=== PATIENT | male | born 1950 | race Caucasian/White ===

== ENCOUNTER → 2016-12-11 | Outpatient (CLI) | payer OTHER ==
[~2016-12-11] MED LIST: ASCA500 PO; ASPI81TA28 PO; CYCL10TA6 PO; LEDI1TAB PO; MELO15TA4 PO; MULT-506 PO; PANT40TA PO; PRLSR20 PO; TADA10TA PO
--- NOTE | 2016-12-11 16:46 | DIAGNOSTIC IMAGING REPORT ---
RIGHT SHOULDER MRI HISTORY: RT SHOULDER PAIN, LOOKING FOR ROTATOR CUFF TEAR Right TECHNIQUE: Multiplanar multisequence MRI of the right shoulder was performed without contrast. COMPARISON STUDY: None. FINDINGS: AC joint: Mild AC joint arthrosis demonstrated by joint space narrowing and small marginal osteophytes. Incidental note is made of an os acromiale. Rotator cuff: The subscapularis, teres minor, and supraspinatus tendons appear to be intact. Small partial undersurface tear at the distal infraspinatus tendon. No evidence for full-thickness rotator cuff tear. Punctate desiccation at the distal subscapularis tendon. Labrum: There is abnormal signal and configuration throughout the superior and inferior portion of the labrum consistent with a tear/degeneration. Biceps tendon: Mild thickening and increased signal in the proximal biceps tendon consistent with a mild tendinopathy. Bones: No fracture or dislocation. Small focus of cystic change within the lateral humeral head. Cartilage: Greater than 50% cartilage thinning within the humeral head and central aspect of the glenoid. Miscellaneous: No significant joint effusion. IMPRESSION: 1. 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 2. Slightly abnormal signal and configuration within the superior and inferior labrum consistent with degeneration/tear. 3. Small partial undersurface tear at the distal infraspinatus tendon. 4. Mild biceps tendinopathy. 5. Mild distal subscapularis calcific tendinitis. Electronically signed by: Artemio Simmons M.D. 12/11/2016 4:43 PM Dictated Date/Time: 12/11/2016 4:36 PM
== END | disposition home or self-care (01) ==
LOC: C.MRIBC 14:52
PROVIDERS: ATTEND Orthopaedic Surgery
DX: M19.011 Primary osteoarthritis, right shoulder (principal); M75.31 Calcific tendinitis of right shoulder; S46.912A Strain of unspecified muscle, fascia and tendon at shoulder and upper arm level, left arm, initial encounter; X58.XXXA Exposure to other specified factors, initial encounter

== ENCOUNTER → 2017-05-21 | Outpatient (CLI) | payer OTHER ==
[~2017-05-21] MED LIST changes: -LEDI1TAB PO; -PRLSR20 PO; -TADA10TA PO
[2017-05-21 13:07] LABS: LYME DISEASE AB IGG NEG (NEG); LYME DISEASE AB IGM NEG (NEG)
== END | disposition home or self-care (01) ==
LOC: C.LABBFT 08:08
PROVIDERS: ATTEND Physician Assistant Medical
DX: R53.81 Other malaise (principal)

== ENCOUNTER → 2017-05-27 | Outpatient (CLI) | payer OTHER ==
[2017-05-27 12:29] LABS: BASO ABS # 0.06 K/uL (0-0.2); COMPLETE YES; EOS % 6.3 %; HEMATOCRIT 46.8 % (42-52); IG% 0.5 %; LYMPH % 26.8 %; LYMPH ABS # 1.69 K/uL (1.2-3.4); MEAN CORPUSCULAR HEMOGLOBIN 32.2 pg (25-34); MEAN CORPUSCULAR HGB CONC 34.6 g/dl (32-36); MEAN PLATELET VOLUME 11.1 fL (7.4-10.4); MONO % 9.8 %; NEUT % 55.6 %; PLATELET COUNT 205 K/uL (130-400); RED BLOOD COUNT 5.03 M/uL (4.7-6.1)
[2017-05-27 12:45] LABS: HEPATITIS B AB NEG
[2017-05-27 13:08] LABS: ALT/SGPT 139 U/L (12-78); AST/SGOT 61 U/L (15-37); BLOOD UREA NITROGEN 15 mg/dl (7-18); BUN/CREATININE RATIO 15.3 (10-20); CARBON DIOXIDE 27 mmol/L (21-32); CHLORIDE 105 mmol/L (98-107); GLUCOSE 116 mg/dl (70-99); POTASSIUM 4.4 mmol/L (3.5-5.1); SODIUM 141 mmol/L (136-145)
[2017-05-27 13:18] LABS: ALB/GLOB RATIO 1.3 (0.9-2); ALKALINE PHOSPHATASE 53 U/L (45-117); RHEUMATOID FACTOR < 10.0 U/mL (0-15)
--- NOTE | 2017-06-01 11:32 | CODING QUERY MEDICAL NECESSITY ---
SUPPORTING DIAGNOSIS NEEDED A supporting diagnosis is required for the test/procedure performed on this patient in order for us to be reimbursed by the patient's insurance. Please provide a supporting diagnosis for the following test/procedure listed below next to the test name along with your signature. *If there is no additional diagnosis for this patient that would support the following test/procedure please document that below next to the test/procedure. Test(s)/Procedure(s) that require a supporting diagnosis: * VITAMIN B12 DIAGNOSIS: Provider Signature: Date: Thank you Polly [employer] Once completed, please kindly fax back to [phone] For questions please call [phone]
== END | disposition home or self-care (01) ==
LOC: C.LABBFT 07:15
PROVIDERS: ATTEND Physician Assistant Medical
DX: M79.1 Myalgia (principal); B18.2 Chronic viral hepatitis C

== ENCOUNTER 2017-07-29 12:15 | Emergency (ER) | payer OTHER ==
[~2017-07-29] VITALS: Ht 177.8 cm; Wt 80.5 kg
[2017-07-29 12:23] VITALS: TEMP 36.7; Ht 177.8 cm; Wt 80.5 kg
[2017-07-29] MEDS ORDERED: IBUPROFEN 800 MG TAB PO STA (12:33)
--- NOTE | 2017-07-29 13:08 | EMERGENCY ROOM VISIT NOTE ---
History Report prepared by Magdalene: Travon Tomlinson Under the Supervision of: Dr. Aris Church M.D. First contact with patient: 12:25 Chief Complaint: FALL Stated Complaint: FALL/BACK PAIN History of Present Illness The patient is a 67 year old male who presents to the Emergency Room with complaints of back pain status post mechanical fall at [facility] on black ice and landed on his right wrist. He was walking when he slipped and landed on his rear end but denies head strike and loss of consciousness. He is concerned for his left sided artificial hip and reports his back is stiffening up. He endorses back soreness and pain with inspiration and rotational movement but denies tenderness upon palpation or sob. Mild neck soreness. Of note, the patient has a history of bursitis in his right hip and sciatica. Source of History: patient Onset: prior to arrival Position: back Quality: ache Timing: constant Modifying Factors (Worsening): movement (rotation) Modifying Factors (Relieving): rest Associated Symptoms: No LOC Review of Systems See HPI for pertinent positives and negatives. A total of ten systems were reviewed and were otherwise negative. Past Medical & Surgical Medical Problems: (1) GERD (gastroesophageal reflux disease) (2) Presence of artificial hip Surgical Problems: (1) Previous back surgery Family History FHx: aneurysm Hypertension Stroke Social History Smoking Status: Former Smoker Alcohol Use: occasionally Marital Status: single Housing Status: lives alone Occupation Status: employed Current/Historical Medications Scheduled Aspirin (Aspirin Ec), 81 MG PO QAM Ledipasvir-Sofosbuvir (Harvoni 90-400 mg), 1 TAB PO DAILY Multivitamin (Multivitamin), 1 TAB PO QAM Scheduled PRN Cyclobenzaprine Hcl (Flexeril), 5-10 MG PO UD PRN for Muscle Spasms Meloxicam (Meloxicam), 15 MG PO DAILY PRN for Pain Allergies Coded Allergies: Amoxicillin (Verified Allergy, Unknown, SEVERE DIARRHEA, 01/13/17) Clavulanic Acid (Verified Allergy, Unknown, SEVERE DIARRHEA, 01/13/17) Grass (Unverified Allergy, Unknown, "ALLERGY SYMPTOMS", 07/29/17) POLLEN (Verified Allergy, Unknown, RUNNY NOSE, CONGESTION, 07/29/17) Physical Exam Vital Signs Date Time Temp Pulse Resp B/P (MAP) Pulse Ox O2 Delivery O2 Flow Rate FiO2 07/29/17 14:00 70 20 130/85 96 Room Air 07/29/17 12:23 36.7 66 20 127/90 95 Room Air Physical Exam GENERAL: Awake, alert, uncomfortable, in no distress HENT: Normocephalic, atraumatic. Oropharynx unremarkable. EYES: Normal conjunctiva. Sclera non-icteric. NECK: Supple. No nuchal rigidity. FROM. No JVD. Mild paraspinal discomfort. No mildline ttp. No stepoffs RESPIRATORY: Clear to auscultation. CARDIAC: Regular rate, normal rhythm. Extremities warm and well perfused. Pulses equal. ABDOMEN: Soft, non-distended. No tenderness to palpation. No rebound or guarding. No masses. RECTAL: Deferred. MUSCULOSKELETAL: Chest examination reveals mild right lateral chest wall tenderness to palpation. The back is symmetrical on inspection without obvious abnormality. No midline tenderness or step off in CTL spine. Mild tenderness in Left inguinal area. There is no CVA tenderness to palpation. No joint edema. Mild right lateral wrist ttp. No snuff box ttp. LOWER EXTREMITIES: Calves are equal size bilaterally and non-tender. No edema. No discoloration. Full range of motion in both hips. Distal PMS in tact. NEURO: Normal sensorium. No sensory or motor deficits noted. SKIN: No rash or jaundice noted. Medical Decision & Procedures ER Provider Diagnostic Interpretation: Radiology results as stated below per my review and radiologist interpretation: [~ rep ct add3]] AP PELVIS AND LEFT HIP 3 VIEWS CLINICAL HISTORY: left hip pain fall COMPARISON STUDY: 01/17/2016 FINDINGS: There are postsurgical changes of a total left hip arthroplasty. No acute fractures or dislocations are visualized. There is no SI joint diastases. There is no symphysis diastases. IMPRESSION: Postsurgical change. No acute fractures identified. LUMBAR SPINE 3 VIEWS CLINICAL HISTORY: Lower back pain status post trauma COMPARISON STUDY: December 2015 FINDINGS: There is no pathologic bowel dilatation. There are postsurgical changes of a total left hip arthroplasty. There are mild multilevel degenerative changes. No acute fractures or traumatic subluxations are visualized. IMPRESSION: No fractures or subluxations identified. Electronically signed by: Charlie Henry M.D. 07/29/2017 1:44 PM Electronically signed by: Charlie Henry M.D. 07/29/2017 1:43 PM R RIBS UNILATERAL WITH PA CHEST CLINICAL HISTORY: Right rib pain following fall. COMPARISON STUDY: Chest radiograph January 30, 2015. FINDINGS: No pneumothorax is identified. There is a possible trace right pleural fluid. No acute rib fracture is identified. There is an old fracture of the right sixth rib. No airspace opacities are evident. IMPRESSION: 1. No pneumothorax. Possible trace right pleural fluid. 3. No acute right rib fractures identified by radiography. Electronically signed by: Scotty Saab M.D. 07/29/2017 1:51 PM R WRIST MIN 3 VIEWS ROUTINE CLINICAL HISTORY: Right wrist pain status post trauma COMPARISON: None. DISCUSSION: No fractures or dislocations are visualized. IMPRESSION: No fractures identified. Electronically signed by: Charlie Henry M.D. 07/29/2017 1:45 PM Laboratory Results Laboratory results reviewed by me Medications Administered Medications (Trade) Dose Ordered Sig/Reggie Route Start Time Stop Time Status Last Admin Dose Admin Ibuprofen (Motrin Tab) 800 mg NOW STAT PO 07/29/17 12:33 07/29/17 12:37 DC 07/29/17 12:58 800 MG Medical Decision I reviewed the patient's past medical history, medications, and the nursing notes as described above. The patient's presentation and history were concerning for fracture, dislocation , muscular strain, and soft tissue injury. The patient is a 67-year-old gentleman with a past medical history of a left hip replacement presents to emergency department after having a fall when he slipped on black ice falling onto his lower back per history of present illness. Arrival the patient is uncomfortable but in no acute distress. AFVSS. The patient has mild tenderness to the right lateral chest wall and left inguinal area. However, has full range of motion in both hips. Xrays negative for fx. ?right pleural fluid however patient denies sob and sats >95% on RA. Plan for pcp and ortho f/u. Findings and plan for follow-up reviewed with patient. Patient agreeable and d/c'd per discharge instructions. Impression Primary Impression: Fall Additional Impressions: Hip pain, left Injury of muscle of lower back Scribe Attestation The scribe's documentation has been prepared under my direction and personally reviewed by me in its entirety. I confirm that the note above accurately reflects all work, treatment, procedures, and medical decision making performed by me. Departure Information Dispostion Home / Self-Care Referrals Loki Lim M.D. (PCP) Patient Instructions ED Contusion Hip, ED Mechanical Fall, My [facility] Additional Instructions Please follow up with your orthopedis in the next week for re-evaluation. Your exam and xrays did not show signs of an emergent condition at this time. Continue your Meloxicam for pain as needed. Return to the emergency department for worsening symptoms as described in the accompanying instructions. Problem Qualifiers
--- NOTE | 2017-07-29 13:44 | DIAGNOSTIC IMAGING REPORT ---
AP PELVIS AND LEFT HIP 3 VIEWS CLINICAL HISTORY: left hip pain fall COMPARISON STUDY: 01/17/2016 FINDINGS: There are postsurgical changes of a total left hip arthroplasty. No acute fractures or dislocations are visualized. There is no SI joint diastases. There is no symphysis diastases. IMPRESSION: Postsurgical change. No acute fractures identified. Electronically signed by: Charlie Henry M.D. 07/29/2017 1:43 PM Dictated Date/Time: 07/29/2017 1:42 PM
--- NOTE | 2017-07-29 13:46 | DIAGNOSTIC IMAGING REPORT ---
LUMBAR SPINE 3 VIEWS CLINICAL HISTORY: Lower back pain status post trauma COMPARISON STUDY: December 2015 FINDINGS: There is no pathologic bowel dilatation. There are postsurgical changes of a total left hip arthroplasty. There are mild multilevel degenerative changes. No acute fractures or traumatic subluxations are visualized. IMPRESSION: No fractures or subluxations identified. Electronically signed by: Charlie Henry M.D. 07/29/2017 1:44 PM Dictated Date/Time: 07/29/2017 1:44 PM
--- NOTE | 2017-07-29 13:46 | DIAGNOSTIC IMAGING REPORT ---
R WRIST MIN 3 VIEWS ROUTINE CLINICAL HISTORY: Right wrist pain status post trauma COMPARISON: None. DISCUSSION: No fractures or dislocations are visualized. IMPRESSION: No fractures identified. Electronically signed by: Charlie Henry M.D. 07/29/2017 1:45 PM Dictated Date/Time: 07/29/2017 1:45 PM
--- NOTE | 2017-07-29 13:52 | DIAGNOSTIC IMAGING REPORT ---
R RIBS UNILATERAL WITH PA CHEST CLINICAL HISTORY: Right rib pain following fall. COMPARISON STUDY: Chest radiograph January 30, 2015. FINDINGS: No pneumothorax is identified. There is a possible trace right pleural fluid. No acute rib fracture is identified. There is an old fracture of the right sixth rib. No airspace opacities are evident. IMPRESSION: 1. No pneumothorax. Possible trace right pleural fluid. 3. No acute right rib fractures identified by radiography. Electronically signed by: Scotty Saab M.D. 07/29/2017 1:51 PM Dictated Date/Time: 07/29/2017 1:45 PM
[2017-07-29 14:00] VITALS: BP 130/85; PULSE 70; O2SAT 96
[2017-07-29] MEDS ORDERED: LEDI1TAB PO (14:29)
== END 2017-07-29 15:00 | disposition home or self-care (01) ==
LOC: EDBD 12:15 → C.EDC 12:19
DX: S39.92XA Unspecified injury of lower back, initial encounter (principal); W01.0XXA Fall on same level from slipping, tripping and stumbling without subsequent striking against object, initial encounter; M25.552 Pain in left hip; K21.9 Gastro-esophageal reflux disease without esophagitis; Z96.649 Presence of unspecified artificial hip joint; Z98.890 Other specified postprocedural states; Z87.891 Personal history of nicotine dependence; Z79.82 Long term (current) use of aspirin; Z79.899 Other long term (current) drug therapy; Z88.1 Allergy status to other antibiotic agents; Z88.8 Allergy status to other drugs, medicaments and biological substances; Z82.49 Family history of ischemic heart disease and other diseases of the circulatory system; Z82.3 Family history of stroke

== ENCOUNTER → 2017-08-21 | Outpatient (CLI) | payer OTHER ==
[~2017-08-21] MED LIST changes: -ASCA500 PO; +BIOFTAB24 PO; +LEDI1TAB PO; +MELO-83 PO; -MELO15TA4 PO; -PANT40TA PO; +PRT/20 PO; +TRAM-10 PO
[2017-08-21 12:12] LABS: BASO % 0.6 %; BASO ABS # 0.05 K/uL (0-0.2); EOS % 4.6 %; EOS ABS # 0.38 K/uL (0-0.5); HEMATOCRIT 46.8 % (42-52); HEMOGLOBIN 16.8 g/dL (14.0-18.0); IG# 0.04 K/uL (0.00-0.02); LYMPH % 29.1 %; LYMPH ABS # 2.39 K/uL (1.2-3.4); MEAN CELL VOLUME 93.8 fL (80-100); MEAN CORPUSCULAR HEMOGLOBIN 33.7 pg (25-34); MEAN CORPUSCULAR HGB CONC 35.9 g/dl (32-36); MEAN PLATELET VOLUME 10.7 fL (7.4-10.4); MONO % 9.1 %; MONO ABS # 0.75 K/uL (0.11-0.59); NEUT % 56.1 %; PLATELET COUNT 196 K/uL (130-400); RED CELL DISTRIBUTION WIDTH CV 11.9 % (11.5-14.5); RED CELL DISTRIBUTION WIDTH SD 39.6 fL (36.4-46.3); WHITE BLOOD COUNT 8.21 K/uL (4.8-10.8)
[2017-08-21 12:35] LABS: ALBUMIN 3.8 gm/dl (3.4-5.0); ALT/SGPT 55 U/L (12-78); AST/SGOT 28 U/L (15-37); BLOOD UREA NITROGEN 17 mg/dl (7-18); CALCIUM 9.2 mg/dl (8.5-10.1); CARBON DIOXIDE 29 mmol/L (21-32); CHOLESTEROL 191 mg/dl (0-200); GLUCOSE 130 mg/dl (70-99); POTASSIUM 4.8 mmol/L (3.5-5.1); SODIUM 137 mmol/L (136-145)
[2017-08-21 12:40] LABS: ALKALINE PHOSPHATASE 54 U/L (45-117); LDL CHOLESTEROL CALCULATED 88 mg/dl; TOTAL PROTEIN 7.2 gm/dl (6.4-8.2)
[2017-08-27 05:43] LABS: HEPATITIS C VIRAL RNA BY PCR <15 NOT DETECTED IU/ML (<15); HEPATITIS C VIRAL RNA(LOG) PCR <1.18 NOT DETECTED LOG IU/ML (<1.18)
== END | disposition home or self-care (01) ==
LOC: C.LAB1850 10:40
PROVIDERS: ATTEND Internal Medicine Infectious Disease
DX: Z12.5 Encounter for screening for malignant neoplasm of prostate (principal); E78.5 Hyperlipidemia, unspecified; B18.2 Chronic viral hepatitis C

== ENCOUNTER → 2017-09-23 | Outpatient (CLI) | payer OTHER ==
[~2017-09-23] MED LIST changes: -BIOFTAB24 PO; -MELO-83 PO; +MELO15TA4 PO; -PRT/20 PO; -TRAM-10 PO
[2017-09-23 13:20] LABS: BASO ABS # 0.08 K/uL (0-0.2); EOS ABS # 0.33 K/uL (0-0.5); HEMATOCRIT 44.8 % (42-52); HEMOGLOBIN 15.9 g/dL (14.0-18.0); IG# 0.03 K/uL (0.00-0.02); LYMPH % 25.9 %; LYMPH ABS # 2.13 K/uL (1.2-3.4); MEAN CELL VOLUME 91.8 fL (80-100); MEAN CORPUSCULAR HEMOGLOBIN 32.6 pg (25-34); MEAN CORPUSCULAR HGB CONC 35.5 g/dl (32-36); MEAN PLATELET VOLUME 10.6 fL (7.4-10.4); MONO % 8.6 %; MONO ABS # 0.71 K/uL (0.11-0.59); NEUT % 60.1 %; NEUT ABS # 4.94 K/uL (1.4-6.5); PLATELET COUNT 191 K/uL (130-400); RED CELL DISTRIBUTION WIDTH CV 11.7 % (11.5-14.5); RED CELL DISTRIBUTION WIDTH SD 39.9 fL (36.4-46.3); WHITE BLOOD COUNT 8.22 K/uL (4.8-10.8)
[2017-09-23 13:48] LABS: ALBUMIN 3.7 gm/dl (3.4-5.0); BLOOD UREA NITROGEN 16 mg/dl (7-18); CALCIUM 9.3 mg/dl (8.5-10.1); CARBON DIOXIDE 29 mmol/L (21-32); CREATININE 0.86 mg/dl (0.60-1.40); GLUCOSE 103 mg/dl (70-99); POTASSIUM 4.2 mmol/L (3.5-5.1); SODIUM 136 mmol/L (136-145)
[2017-09-23 14:06] LABS: ALKALINE PHOSPHATASE 55 U/L (45-117); ALT/SGPT 37 U/L (12-78); AST/SGOT 18 U/L (15-37); TOTAL PROTEIN 7.1 gm/dl (6.4-8.2)
[2017-09-27 13:17] LABS: HEPATITIS C VIRAL RNA BY PCR <15 NOT DETECTED IU/ML (<15); HEPATITIS C VIRAL RNA(LOG) PCR <1.18 NOT DETECTED LOG IU/ML (<1.18)
== END | disposition home or self-care (01) ==
LOC: C.LAB1850 12:22
PROVIDERS: ATTEND Internal Medicine Infectious Disease
DX: B18.2 Chronic viral hepatitis C (principal)

== ENCOUNTER → 2017-10-19 | Outpatient (CLI) | payer OTHER ==
[~2017-10-19] MED LIST changes: +MELO-83 PO; -MELO15TA4 PO
--- NOTE | 2017-10-19 08:54 | DIAGNOSTIC IMAGING REPORT ---
ULTRASOUND EXAM AAA SCREEN CLINICAL HISTORY: 67 years-old Male with FAMILY HX RUPTURED ANEURYSM OF ABD AORTA. Screening exam for abdominal aortic aneurysm COMPARISON: Ultrasound of the abdomen 06/22/2014 TECHNIQUE: Multiple real time sonographic images of the abdominal aorta were obtained assessing -scale appearance as well as color. Doppler and spectral waveform analysis. FINDINGS: MEASUREMENTS: Proximal Aorta: 2.3 x 2.4 x 2.6 cm Mid Aorta: 2.0 x 1.9 x 2.0 cm Distal Aorta: 1.7 x 1.6 x 1.4 cm Right Common Iliac Artery: 0.9 cm Left Common Iliac Artery: 1.1 cm Pulsatile color Doppler flow and a normal spectral waveform are seen within the proximal aorta. IMPRESSION: No abdominal aortic aneurysm identified. The above report was generated using voice recognition software. It may contain grammatical, syntax or spelling errors. Electronically signed by: Scott Guzmán M.D. 10/19/2017 8:53 AM Dictated Date/Time: 10/19/2017 8:49 AM
== END | disposition home or self-care (01) ==
LOC: C.ULTR 08:20
PROVIDERS: ATTEND Physician Assistant Medical
DX: Z82.49 Family history of ischemic heart disease and other diseases of the circulatory system (principal)

== ENCOUNTER → 2017-12-14 | Outpatient (CLI) | payer OTHER ==
[2017-12-14 12:26] LABS: BASO ABS # 0.07 K/uL (0-0.2); EOS % 4.6 %; EOS ABS # 0.33 K/uL (0-0.5); HEMATOCRIT 43.9 % (42-52); HEMOGLOBIN 15.4 g/dL (14.0-18.0); IG# 0.02 K/uL (0.00-0.02); LYMPH % 29.1 %; LYMPH ABS # 2.11 K/uL (1.2-3.4); MEAN CELL VOLUME 94.2 fL (80-100); MEAN CORPUSCULAR HGB CONC 35.1 g/dl (32-36); MEAN PLATELET VOLUME 10.9 fL (7.4-10.4); MONO % 8.6 %; MONO ABS # 0.62 K/uL (0.11-0.59); NEUT % 56.4 %; NEUT ABS # 4.09 K/uL (1.4-6.5); PLATELET COUNT 205 K/uL (130-400); RED CELL DISTRIBUTION WIDTH CV 12.3 % (11.5-14.5); RED CELL DISTRIBUTION WIDTH SD 41.6 fL (36.4-46.3); WHITE BLOOD COUNT 7.24 K/uL (4.8-10.8)
[2017-12-14 12:47] LABS: ALBUMIN 3.8 gm/dl (3.4-5.0); ALT/SGPT 32 U/L (12-78); AST/SGOT 22 U/L (15-37); BLOOD UREA NITROGEN 17 mg/dl (7-18); CALCIUM 9.3 mg/dl (8.5-10.1); CARBON DIOXIDE 30 mmol/L (21-32); CREATININE 0.97 mg/dl (0.60-1.40); GLUCOSE 119 mg/dl (70-99); POTASSIUM 5.2 mmol/L (3.5-5.1); SODIUM 139 mmol/L (136-145)
[2017-12-14 12:50] LABS: ALKALINE PHOSPHATASE 59 U/L (45-117); TOTAL PROTEIN 7.1 gm/dl (6.4-8.2)
[2017-12-15 14:44] LABS: HEPATITIS C VIRAL RNA BY PCR <15 DETECTED IU/ML (<15); HEPATITIS C VIRAL RNA(LOG) PCR <1.18 DETECTED LOG IU/ML (<1.18)
== END | disposition home or self-care (01) ==
LOC: C.LAB1850 10:05
PROVIDERS: ATTEND Internal Medicine Infectious Disease
DX: B18.2 Chronic viral hepatitis C (principal)

== ENCOUNTER 2019-01-03 05:50 | Observation (INO) ==
--- NOTE | 2018-12-07 15:02 | PAT Medication Instructions ---
Medication Instructions Date of Service December 07, 2018 Home Medications aspirin [Aspir-81] 81 mg PO DAILY meloxicam 15 mg PO DAILY PRN multivitamin 1 dose PO DAILY pantoprazole 20 mg PO QAM fluticasone propionate [Flonase 1 - 2 spray INTRANASAL UD PRN ketorolac 10 mg PO Q6H PRN methylprednisolone 4 mg PO Q8H tramadol 50 mg PO Q6H PRN Continue as directed methylprednisolone 4 mg PO Q8H ASK your surgeon for instructions meloxicam 15 mg PO DAILY PRN ketorolac 10 mg PO Q6H PRN ASK your prescriber and surgeon aspirin [Aspir-81] 81 mg PO DAILY DO NOT take the morning of surgery multivitamin 1 dose PO DAILY Take morning of surgery With a small sip of water, OTHERWISE NOTHING TO EAT OR DRINK AFTER MIDNIGHT: pantoprazole 20 mg PO QAM fluticasone propionate [Flonase 1 - 2 spray INTRANASAL UD PRN (if needed) tramadol 50 mg PO Q6H PRN (okay to take up to 4 hours prior to surgery if needed) Take evening before surgery fluticasone propionate [Flonase 1 - 2 spray INTRANASAL UD PRN (if needed) tramadol 50 mg PO Q6H PRN (if needed) Other Notes If you have any questions please call us at [phone] or [phone] or [phone] or [phone]
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
--- NOTE | 2018-12-08 11:42 | XRay Report ---
XR chest Pre-admission PA/Lat HISTORY: Preop. COMPARISON: Chest 07/29/2017. FINDINGS: The lungs are clear. Cardiac silhouette is normal in size. No pleural effusions. No pneumot horax. IMPRESSION: No acute process. Electronically signed by: Artemio Simmons M.D. 12/08/2018 11:41 AM
[2018-12-08 12:01] LABS: Basophils # (auto) 0.06 K/uL (0-0.2); Basophils % (auto) 0.4 %; Eosinophils # (auto) 0.25 K/uL (0-0.5); Eosinophils % (auto) 1.8 %; Hemoglobin 15.9 g/dL (14.0-18.0); Immature Granulocytes # (auto) 0.17 K/uL (0.00-0.02); Immature Granulocytes % (auto) 1.2 %; Lymphocytes # (auto) 4.44 K/uL (1.2-3.4); Lymphocytes % (auto) 31.7 %; Mean Corpuscular Hgb Conc 34.6 g/dL (32-36); Mean Corpuscular Volume 93.3 fL (80-100); Mean Platelet Volume 10.4 fL (7.4-10.4); Monocytes % (auto) 9.3 %; Neutrophils % (auto) 55.6 %; Platelet Count 229 K/uL (130-400); RDW Standard Deviation 40.3 fL (36.4-46.3); Red Blood Count 4.93 M/uL (4.7-6.1); White Blood Count 14.02 K/uL (4.8-10.8)
[2018-12-08 12:06] LABS: Calcium 9.7 mg/dl (8.5-10.1); Creatinine Clr Calc Pharmacy 76.8 ml/min; Est GFR (African American) 94.9; Est GFR (Non-African American) 81.9; Potassium 5.1 mmol/L (3.5-5.1)
[2018-12-08 12:25] LABS: Partial Thromboplastin Ratio 0.9; Partial Thromboplastin Time 23.1 Seconds (21.0-31.0); Prothrombin Time 10.7 Seconds (9.0-12.0)
--- NOTE | 2018-12-24 11:58 | History and Physical Report ---
DATE OF ADMISSION: 01/03/2019 CHIEF COMPLAINT: Back, buttock, lower extremity difficulty. He is scheduled for a discectomy, L5-S1. HISTORY OF PRESENT ILLNESS: He has failed conservative care. He has had ongoing difficulties, paresthesias, numbness and pain. He has finally come to surgical decision making. PAST MEDICAL HISTORY: Positive for depression, stomach problems, hepatitis. PAST SURGICAL HISTORY: Disc surgery in L5, left hip surgery in 2011. ALLERGIES: No allergies. FAMILY HISTORY: Heart disease. SOCIAL HISTORY: He is single. Moderate alcohol, no tobacco. Active lifestyle. REVIEW OF SYSTEMS: Twelve systems reviewed. No fevers, sweats, chills. Ear, nose, and throat: Negative. Cardiac: He has some heart beat changes. Positive cough. Positive depression, sinus issues. Denies nausea, vomiting, bowel and bladder incontinence. No immune deficiency. MEDICATIONS: Meloxicam, cyclobenzaprine, baby aspirin. OBJECTIVE: GENERAL: He is 5 feet 10 inches. He is 180. He is in no terrible distress. VITAL SIGNS: Blood pressure 130/80, pulse 80, respirations 16. LUNGS: Clear to auscultation. No rales, rhonchi, wheezing. ABDOMEN: Soft, nontender. CARDIAC: Normal S1, S2. MUSCULOSKELETAL: He walks with a limp. He has weakness of push off strength. He has decreased reflexes. He has straight leg raising on the left, negative on the right. ASSESSMENT: Disc herniation, lumbar spine. PLAN: Includes a lumbar spine discectomy, L5-S1.
[2019-01-03] MEDS ORDERED: CEFAZOLIN 2000MG 2,000 MG/15 ML SYR IV SCH (06:00)
[2019-01-03] MEDS ORDERED: LR 15ML/HR IV SCH (06:00)
[2019-01-03] MEDS ORDERED: SODIUM CHLORIDE 0.9% 1,000 ML IV SCH (06:00)
[2019-01-03] MEDS ORDERED: ONDANSETRON INJ 2 MG/ML 2 ML VIAL ONE (06:50)
[2019-01-03] MEDS ORDERED: DEXAMETHASONE SOD INJ 4 MG/ML VIAL ONE (06:50)
[2019-01-03] MEDS ORDERED: ROCURONIUM BROMIDE 10 MG/ML 5 ML VIAL ONE (06:50)
[2019-01-03] MEDS ORDERED: MIDAZOLAM HCL 1 MG/ML 2ML VIAL ONE (06:50)
[2019-01-03] MEDS ORDERED: LIDOCAINE HCL 2% 2 ML VIAL/AMP(20MG/ML) INFIL ONE (06:50)
[2019-01-03] MEDS ORDERED: GLYCOPYRROLATE 0.2 MG/ML VIAL ONE (06:50)
[2019-01-03] MEDS ORDERED: PROPOFOL IV EMULSION 10 MG/ML 20 ML VIAL IV ONE (06:50)
[2019-01-03] MEDS ORDERED: NEOSTIGMINE METHYLSULFATE 5 MG/5 ML SYR ONE (06:50)
[2019-01-03] MEDS ORDERED: fentaNYL citrate 100 MCG/2 ML VIAL ONE ×2 (06:50)
[2019-01-03] MEDS ORDERED: HYDROmorphone INJ 1 MG/ML SYRINGE IV PRN ×3 (06:54→10:14)
[2019-01-03] MEDS ORDERED: PROMETHAZINE HCL 12.5 MG in SODIUM CHLORIDE 0.9% 50 ML IV PRN (06:54)
[2019-01-03] MEDS ORDERED: ePHEDrine sulfate 50 MG/ML AMP IV PRN (06:54)
[2019-01-03] MEDS ORDERED: ATROPINE SULFATE 0.1 MG/ML 10ML SYR IV PRN (06:54)
[2019-01-03] MEDS ORDERED: PHENYLEPHRINE 100MCG/ML 5ML SYR IV PRN (06:54)
[2019-01-03] MEDS ORDERED: ONDANSETRON INJ 2 MG/ML 2 ML VIAL IV PRN ×2 (06:54→10:14)
[2019-01-03] MEDS ORDERED: THROMBIN FOR SOLN 20000 UNIT KIT ONE (07:06)
[2019-01-03] MEDS ORDERED: VANCOMYCIN HCL 1000MG/20ML VIAL ONE (07:06)
[2019-01-03] MEDS ORDERED: BUPIVACAINE/EPINEPHRINE 0.5% MPF 1:200,000 30 ML VIAL ONE (07:06)
[2019-01-03] MEDS ORDERED: GELATIN SPONGE SZ 100 ONE (07:06)
[2019-01-03] MEDS ORDERED: BACITRACIN INJ 50,000 UNIT VIAL ONE (07:06)
--- NOTE | 2019-01-03 07:21 | History & Physical Bridge Note ---
Date of Service January 03, 2019 History & Physical Bridge Note I have examined the patient, reviewed the History & Physical and in the interval since the performance of the History & Physical I have noted the following changes of clinical significance: no changes noted
[2019-01-03] MEDS ORDERED: KETOROLAC 30 MG/ML VIAL ONE (08:19)
--- NOTE | 2019-01-03 08:44 | Fluoroscopy Report ---
FL spine 1V any level HISTORY: Discectomy. FLUOROSCOPY TIME: 2 seconds. FINDINGS: Intraoperative fluoroscopy was provided for the lumbar spine. 1 fluoroscopic spot images we re obtained. IMPRESSION: Fluoroscopy provided for a L5-S1 discectomy. The above report was generated using voice recognition software. It may contain grammatical, syntax or spelling errors. Electronically signed by: Morgan Templeton M.D. 01/03/2019 8:42 AM
--- NOTE | 2019-01-03 08:46 | Post Operative Brief Note ---
Immediate Post Op Note v1 Date of Surgery January 03, 2019 Pre & Post Diagnosis Operation Date: 01/03/19 07:30 Pre-Op Diagnosis: Disc Herniation Post-Op Diagnosis: Disc Herniation Procedure Operation Date: 01/03/19 07:30 Actual Procedures p L5-S1 Discectomy - Larry Maldonado DO Surgeon Larry Maldonado DO Cork Molder mario Estimated Blood Loss 25 Findings Consistent with Post-Op Diagnosis Drains Hemovac Drain Complications none Disposition Accompanied Patient To Recovery: Yes Overlapping Procedure I was immediately available: during the entire case.
[2019-01-03] MEDS: fentaNYL citrate 100 MCG/2 ML VIAL IV PRN ×4 (08:54→09:09)
--- NOTE | 2019-01-03 09:20 | Anesthesiology Progress Note ---
Date of Service January 03, 2019 Anesthesia Post Procedure Vital Signs Vital Signs: Temp Pulse Pulse Resp BP Pulse Ox 01/03/19 09:10 76 17 165/90 H 100 01/03/19 09:00 80 13 162/88 H 100 01/03/19 08:50 82 19 157/82 H 100 01/03/19 08:41 36.1 C L 87 16 144/83 H 97 01/03/19 06:26 36.8 C 69 20 157/94 H 96 Pain Intensity Left Leg: Pain Intensity: 3 Back: Pain Intensity: 5 Transfer of Care Handoff Completed per policy Notes Mental Status: alert / awake / arousable Patient Amnestic to Procedure: Yes Nausea / Vomiting: adequately controlled Pain: adequately controlled Airway Patency, RR, SpO2: stable & adequate BP & HR: stable & adequate Hydration State: stable & adequate Anesthetic Complications: no major complications apparent
[2019-01-03] MEDS ORDERED: OXYCODONE HCL IR 5 MG TAB (IMMEDIATE RELEASE) PO PRN (10:14)
[2019-01-03] MEDS ORDERED: ACETAMINOPHEN 1,000 MG/100 ML VIAL IV PRN (10:14)
--- NOTE | 2019-01-03 10:26 | Operative Report ---
DATE OF OPERATION: 01/03/2019 PREOPERATIVE DIAGNOSIS: Disc herniation, lumbar spine. POSTOPERATIVE DIAGNOSIS: Disc herniation, lumbar spine. PROCEDURES: Lumbar spine laminotomy, foraminotomy and discectomy, L5-S1 lumbar spine on the left hand side, symptomatic side. SURGEON: Larry Maldonado DO WELLNESS ASSISTANT: Sonu Santiago PA-C COMPLICATIONS: Zero. BLOOD LOSS: Less than 30 mL. Sponge and needle count correct at the close. DESCRIPTION OF PROCEDURE: The patient was identified in the preop area marked. We brought him back to the operating room. A formal timeout was obtained. First, he was placed prone, prepped and draped sterile. We call a formal timeout. We made a skin incision, fascial incision. We came down to the L5-S1 interspace. I marked the interspace with a Eleazar clamp. We did a formal discectomy, mini laminotomy superior. We did a foraminotomy, and partial laminotomy below on the left hand side. We completed the foraminotomy. I retracted the nerve root over. He had prior surgery. There was scar tissue. We were able to piecemeal out ample amount of disc material. I was able to get into the disc interval. There were no apparent complications. I was pleased with the freedom of the associated nerve root, it was well decompressed. We irrigated and closed in layers. Sterile dressings applied over Hemovac drain and over vancomycin powder. Sterile dressings applied. The patient returned to PACU stable. No apparent complications. I attest to the content of the Intraoperative Record and any orders documented therein. Any exception s are noted below.
[2019-01-03] MEDS: ASPIRIN 81 MG ECTAB PO SCH (12:03)
[2019-01-03] MEDS: CLINDAMYCIN 600 MG in DEXTROSE 5% 50 ML IV SCH ×2 (12:03→18:18)
[2019-01-03] MEDS: PANTOprazole 40 MG TAB PO SCH (12:03)
[2019-01-03] MEDS: DOCUSATE SODIUM 100 MG CAP PO SCH ×2 (12:03→21:30)
[2019-01-03] MEDS: MULTIVITAMIN TAB PO SCH (12:03)
[2019-01-03] MEDS: MAGNESIUM HYDROXIDE SUSP 30 ML UDC PO PRN (12:05)
[2019-01-03] MEDS ORDERED: SOD PHOSPHATE/SOD BIPHOSPHATE ENEMA 132 ML BTL PR STA (17:25)
[2019-01-03] MEDS ORDERED: BISACODYL 10 MG SUPP PR STA (17:27)
[2019-01-03] MEDS ORDERED: BISACODYL 5 MG TABEC PO STA (17:29)
[2019-01-03] MEDS: OXYCODONE HCL IR 5 MG TAB (IMMEDIATE RELEASE) PO PRN (18:18)
[2019-01-03] MEDS ORDERED: SOD PHOSPHATE/SOD BIPHOSPHATE ENEMA 132 ML BTL PR ONE (19:43)
[2019-01-04] MEDS: CLINDAMYCIN 600 MG in DEXTROSE 5% 50 ML IV SCH (01:59)
[2019-01-04] MEDS: OXYCODONE HCL IR 5 MG TAB (IMMEDIATE RELEASE) PO PRN (07:26)
[2019-01-04] MEDS: ASPIRIN 81 MG ECTAB PO SCH (07:27)
[2019-01-04] MEDS: PANTOprazole 40 MG TAB PO SCH (07:27)
[2019-01-04] MEDS: MULTIVITAMIN TAB PO SCH (07:27)
[2019-01-04] MEDS: DOCUSATE SODIUM 100 MG CAP PO SCH ×2 (07:27→20:55)
--- NOTE | 2019-01-04 07:45 | Anesthesiology Progress Note ---
Date of Service January 04, 2019 Anesthesia Post Procedure Vital Signs Vital Signs: Temp Pulse Pulse Resp BP BP Pulse Ox 01/04/19 06:59 37.3 C 80 18 149/93 H 95 01/04/19 02:55 36.6 C 81 16 148/87 H 94 01/03/19 23:05 36.6 C 81 18 153/93 H 96 01/03/19 19:28 36.6 C 93 H 17 147/87 H 97 01/03/19 17:02 91 H 148/97 H 97 01/03/19 15:08 36.6 C 80 17 144/92 H 97 01/03/19 12:51 37.0 C 90 16 158/64 H 97 01/03/19 11:41 36.6 C 74 16 169/101 H 95 01/03/19 10:36 36.3 C L 78 16 155/96 H 98 01/03/19 10:08 72 18 161/99 H 97 01/03/19 09:40 36.4 C L 72 14 168/89 H 99 01/03/19 09:30 76 19 167/94 H 98 01/03/19 09:20 36.1 C L 73 18 168/94 H 100 01/03/19 09:10 76 17 165/90 H 100 01/03/19 09:00 80 13 162/88 H 100 01/03/19 08:50 82 19 157/82 H 100 01/03/19 08:41 36.1 C L 87 16 144/83 H 97 Pain Intensity Left Leg: Pain Intensity: 3 Back: Pain Intensity: 3 Notes Mental Status: alert / awake / arousable and participated in evaluation Patient Amnestic to Procedure: Yes Nausea / Vomiting: adequately controlled Pain: adequately controlled Airway Patency, RR, SpO2: stable & adequate BP & HR: stable & adequate Hydration State: stable & adequate Anesthetic Complications: no major complications apparent and Pt Satisfied with anesthetic care
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
--- NOTE | 2019-01-04 08:17 | Discharge Summary ---
SUBJECTIVE: He is alert, oriented this morning, taking p.o. He does have some constipation issues with pain control. We have him on a bowel program. He has also been cleared and seen by urology. OBJECTIVE: Wound clean, dry. Neurologically intact. ASSESSMENT: Status post lumbar spine discectomy procedure. PLAN: We will get him discharged home later on this afternoon. Dressing changed. We will stick with tramadol or Ultram at home, stay away from heavy narcotics, place him on a bowel program, prescription for [id number] Dulcolax tablets. He has a followup appointment in approximately 14 days. Instructions given, precautions provided.
[2019-01-04] MEDS: TAMSULOSIN HCL 0.4 MG CAP PO SCH (11:01)
[2019-01-04] MEDS: MAGNESIUM HYDROXIDE SUSP 30 ML UDC PO PRN (11:05)
[2019-01-04] MEDS ORDERED: SOD PHOSPHATE/SOD BIPHOSPHATE ENEMA 132 ML BTL PR STA (15:11)
[2019-01-04] MEDS: ACETAMINOPHEN 1,000 MG/100 ML VIAL IV SCH (17:06)
[2019-01-04] MEDS: TRAMADOL HCL 50 MG TABLET PO PRN (23:48)
[2019-01-05] MEDS: ACETAMINOPHEN 1,000 MG/100 ML VIAL IV SCH ×2 (01:44→09:53)
[2019-01-05] MEDS ORDERED: BISACODYL 5 MG TABEC PO PRN (06:00)
[2019-01-05] MEDS: DOCUSATE SODIUM 100 MG CAP PO SCH (08:41)
[2019-01-05] MEDS: PANTOprazole 40 MG TAB PO SCH (08:41)
[2019-01-05] MEDS: MULTIVITAMIN TAB PO SCH (08:41)
[2019-01-05] MEDS: TAMSULOSIN HCL 0.4 MG CAP PO SCH (08:41)
[2019-01-05] MEDS: ASPIRIN 81 MG ECTAB PO SCH (08:41)
[2019-01-05] MEDS: TRAMADOL HCL 50 MG TABLET PO PRN (10:29)
== END 2019-01-05 11:05 | disposition home health service (06) ==
LOC: ASU 05:50 → 3E 05:50

== ENCOUNTER 2019-08-22 11:56 | Observation (INO) ==
[2019-08-22] MEDS ORDERED: ONDANSETRON INJ 2 MG/ML 2 ML VIAL IV STA (13:30)
[2019-08-22] MEDS ORDERED: ASPIRIN CHEW 324 MG PO STA (13:30)
[2019-08-22] MEDS ORDERED: fentaNYL citrate 100 MCG/2 ML VIAL IV PRN (13:30)
--- NOTE | 2019-08-22 13:46 | XRay Report ---
XR chest 1V portable CLINICAL HISTORY: Chest Pain pain COMPARISON STUDY: 12/08/2018 FINDINGS: The bones soft tissues and hemidiaphragms are normal. The cardiomediastinal silhouette is n ormal. The lungs are clear. The pulmonary vasculature is normal. IMPRESSION: Negative chest. ACT 112: Negative or not required by law. The above report was generated using voice recognition software. It may contain grammatical, syntax or spelling errors. Electronically signed by: Morgan Templeton M.D. 08/22/2019 1:44 PM
[2019-08-22 14:18] LABS: Basophils # (auto) 0.04 K/uL (0-0.2); Basophils % (auto) 0.5 %; Eosinophils # (auto) 0.29 K/uL (0-0.5); Eosinophils % (auto) 3.4 %; Hematocrit (blood only) 42.3 % (42-52); Immature Granulocytes # (auto) 0.02 K/uL (0.00-0.02); Immature Granulocytes % (auto) 0.2 %; Lymphocytes # (auto) 2.08 K/uL (1.2-3.4); Lymphocytes % (auto) 24.1 %; Mean Corpuscular Hemoglobin 32.6 pg (25-34); Mean Corpuscular Hgb Conc 35.5 g/dL (32-36); Mean Platelet Volume 10.2 fL (7.4-10.4); Monocytes # (auto) 0.64 K/uL (0.11-0.59); Monocytes % (auto) 7.4 %; Neutrophils # (auto) 5.57 K/uL (1.4-6.5); Neutrophils % (auto) 64.4 %; Platelet Count 226 K/uL (130-400); RDW Coefficient of Variation 11.8 % (11.5-14.5); RDW Standard Deviation 39.8 fL (36.4-46.3); White Blood Count 8.64 K/uL (4.8-10.8)
[2019-08-22 14:28] LABS: Partial Thromboplastin Ratio 0.9; Partial Thromboplastin Time 24.5 Seconds (21.0-31.0); Prothrombin Time 10.3 Seconds (9.0-12.0)
[2019-08-22 14:45] LABS: Albumin Level 3.8 gm/dl (3.4-5.0); BUN Creatinine Ratio 22.1 (10-20); Calcium 9.1 mg/dl (8.5-10.1); Creatinine Clr Calc Pharmacy 84.7 ml/min; Est GFR (Non-African American) 88.9
[2019-08-22 15:00] LABS: Albumin Globulin Ratio 1.2 (0.9-2); Bilirubin,Total 0.3 mg/dl (0.2-1); Globulin 3.1 gm/dl (2.5-4.0); Total Protein 6.9 gm/dl (6.4-8.2); Troponin I 0.05 ng/ml (0-0.045)
[2019-08-22 16:14] LABS: Lyme Ab IgG w/WB Rflx Negative (Negative); Lyme Ab IgM w/WB Rflx Negative (Negative)
[2019-08-22] MEDS ORDERED: MoRPHine SULFATE 2 MG/ML CARP IV PRN (17:54)
[2019-08-22] MEDS ORDERED: TRAMADOL HCL 50 MG TABLET PO PRN (17:54)
[2019-08-22] MEDS ORDERED: ACETAMINOPHEN 325 MG TAB PO PRN (17:54)
[2019-08-22] MEDS ORDERED: NITROGLYCERIN SL 0.4 MG/TAB TAB SL PRN (17:54)
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
[2019-08-22 18:45] LABS: Phosphorus 3.5 mg/dl (2.5-4.9); Troponin I 0.055 ng/ml (0-0.045)
[2019-08-22] MEDS ORDERED: lisinopriL 5 MG TAB PO ONE (20:10)
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
[2019-08-22] MEDS ORDERED: ENOXAPARIN INJ 40 MG/0.4 ML SYR SQ SCH (21:00)
[2019-08-23 06:16] LABS: Basophils # (auto) 0.06 K/uL (0-0.2); Basophils % (auto) 0.7 %; Eosinophils % (auto) 4.7 %; Hematocrit (blood only) 43.6 % (42-52); Hemoglobin 15.2 g/dL (14.0-18.0); Immature Granulocytes # (auto) 0.03 K/uL (0.00-0.02); Immature Granulocytes % (auto) 0.3 %; Lymphocytes # (auto) 3.01 K/uL (1.2-3.4); Mean Corpuscular Hemoglobin 32.4 pg (25-34); Mean Corpuscular Hgb Conc 34.9 g/dL (32-36); Mean Platelet Volume 10.5 fL (7.4-10.4); Monocytes # (auto) 0.77 K/uL (0.11-0.59); Neutrophils # (auto) 4.33 K/uL (1.4-6.5); Neutrophils % (auto) 50.3 %; Platelet Count 203 K/uL (130-400); RDW Coefficient of Variation 12.1 % (11.5-14.5); RDW Standard Deviation 40.5 fL (36.4-46.3); Red Blood Count 4.69 M/uL (4.7-6.1)
[2019-08-23 06:58] LABS: BUN Creatinine Ratio 21.9 (10-20); Calcium 8.8 mg/dl (8.5-10.1); Creatinine Clr Calc Pharmacy 76.6 ml/min; Est GFR (African American) 95.5; Est GFR (Non-African American) 82.4
[2019-08-23 07:03] LABS: Estimated Average Glucose 111 mg/dl; Hemoglobin A1C 5.5 % (4.5-5.6)
[2019-08-23] MEDS ORDERED: lisinopriL 5 MG TAB PO SCH (09:00)
[2019-08-23] MEDS ORDERED: PANTOprazole 40 MG TAB PO SCH (09:00)
[2019-08-23] MEDS ORDERED: ASPIRIN 81 MG ECTAB PO SCH (09:00)
[2019-08-23] MEDS ORDERED: LIDOCAINE 5% 1 PATCH TD SCH (09:00)
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
[2019-08-23] MEDS ORDERED: OPTIRAY 320 125ml IV PRN (14:45)
--- NOTE | 2019-08-23 15:00 | CT Scan Report ---
CT ANGIOGRAM OF THE CHEST COMBO CLINICAL HISTORY: Atypical chest pain. Back pain. COMPARISON STUDY: Chest x-ray dated 08/22/2019. TECHNIQUE: Before and following the IV administration of 118 cc of Optiray 320, CT angiogram of the c hest was performed from the thoracic inlet to the upper abdomen utilizing the dissection protocol. Im ages are reviewed in the axial, sagittal, and coronal planes. 3-D MIPS images are created and assesse d. IV contrast was administered without complication. A dose lowering technique was utilized adherin g to the principles of ALARA. CT DOSE: 690.07 mGy.cm FINDINGS: Thyroid: Imaged portions of the thyroid gland are normal in size and attenuation. Thoracic aorta: No intramural hematoma is seen on the unenhanced series. There is mild ectasia of the ascending thoracic aorta which measures up to 3.5 cm in diameter. The remainder of the thoracic aort a is normal in caliber, and the arch demonstrates standard 3-vessel anatomy. No dissection is seen. T he arch vessels are widely patent. Pulmonary vasculature: The pulmonary trunk is normal in caliber. There are no central filling defects identified in the pulmonary vessels to suggest pulmonary embolus. Note that this examination was not specifically protocoled to assess for pulmonary emboli. Heart: The heart is top normal in size and without pericardial effusion. There are coronary artery ca lcifications. Lungs and pleural spaces: The lungs and pleural spaces are clear noting mild bibasilar scarring/atele ctasis. The trachea and central airways are clear. Mediastinum: There is no mediastinal lymphadenopathy. Sharla: Clear. Axillae: There is no axillary lymphadenopathy. Upper abdomen: Partially visualized upper abdominal viscera is within normal limits. Skeletal structures: Mild degenerative change is noted in the shoulders and thoracic spine. No lytic or blastic bony lesions are seen. IMPRESSION: 1. There is no aneurysm or dissection involving the thoracic aorta. 2. There is no airspace consolidation or pleural effusion. ACT 112: Negative or not required by law. Electronically signed by: Jorje Mcelroy M.D. 08/23/2019 2:59 PM
--- NOTE | 2019-08-23 18:09 | Discharge Summary ---
Date of Service August 23, 2019 Admission HPI Per Admitting Provider Nelson Gomez is a 69-year-old male with history of GERD, HCV status post successful treatment, presenting with chest discomfort. Patient reports that he began developing flu-like symptoms on 08/17/2019 to include body aches, sneezing, coughing. He subsequently developed worsening pain in the right side of his neck and trapezius as well as occasional bandlike chest discomfort across his anterior chest. His pain has been persistent and mildly worsening over the last 2 days. Pain is worse with movement and with ambulation. Non-pleuritic in nature he admits to occasional palpitations which are not new or changed. Denies cough/shortness of breath/dizziness/syncope. Denies edema/orthopnea/weight gain. He is quite active and frequently walks and goes to the gym. He has never experienced chest discomfort or dyspnea that has limited activity. No personal history of CAD, MIs or CHF. He reports having an exercise stress test approximately 2 years ago which was unremarkable. I am unable to find record of this study. Echocardiogram 05/29/2015 with normal LV size and function, EF 60 to 65%. Class I diastolic dysfunction Holter monitor from 06/07/2015 with rare, isolated PVCs, PACs, 2 very brief runs of atrial tachycardia ER course: Aspirin, fentanyl, Zofran Principal Diagnosis Neck and arm pain, elevated troponin Discharge Exam Constitutional WD/WN, vitals as above Eyes PERRL, conjunctivae normal, anicteric sclerae ENMT external ear and nose normal, oropharynx normal Neck trachea midline, no thyromegaly normal visual inspection; neck nontender Respiratory normal respiratory effort, lungs clear to auscultation Cardiovascular RRR, no murmur, no edema Chest (Breasts) Chest: normal inspection of chest Gastrointestinal (Abdomen) normal bowel sounds, soft, nontender, no hepatosplenomegaly Musculoskeletal Extremities: extremities normal to inspection; no cyanosis and no clubbing no TTP over upper extremities throughout Skin no rashes, warm and dry Neurologic moves all extremities and awake; no focal motor deficits Psychiatric A+Ox3, euthymic affect Lymphatic no lymphedema Discharge Data Allergies Allergy/AdvReac Type Severity Reaction Status Date / Time grass pollen-perennial rye, Allergy Severe RUNNY Verified 08/22/19 14:01 standar NOSE, CONGESTION pollen extracts Allergy Severe RUNNY Verified 08/22/19 14:01 NOSE, CONGESTION amoxicillin Allergy Unknown SEVERE Verified 08/22/19 14:01 DIARRHEA clavulanic acid Allergy Unknown SEVERE Verified 08/22/19 14:01 DIARRHEA Consultations 08/22/19 15:30 ED Decision to Admit Stat 08/23/19 10:28 Consult Cardiology Routine Procedures Performed ECHO-normal Ordered Studies 08/23/19 14:14 CT angio chest dissec wo/w con Urgent CXR Hospital Course (1) Chest pain: Patient presenting with 5 days of right-sided chest discomfort as per admitting report however upon my questioning, he states he never had chest pain. He only reports severe pain in trapezii muscles bilat radiating down bilat upper extremities that was severe, coming on only at night when he laid down, but hten did occur in the evening before bed the day he came in. It was relieved with tramadol for the most part, but not relieved with NSAIDs, ASA, or heating pad. Denied numbness/tingling/weakness in upper extremities and had chronic toe numbness. has known chronic DDD of neck and spine. His pain here he reported was pretty much resolved except for a dull constant ache in the trapezii. CT Chest dissection protocol performed which was negative except for some ectasia of thoracic aorta. Lipid panel excellent, HgbA1C normal. Nonsmoker. Exercises regularly without angina. Has +FH of CAD and AAA but reports his mother is living at age 94, all grandparents lived to be in late 80s, unclear history of father BPs elevated due to pain perhaps but started on lisinopril as below Interestingly though, his troponin was slightly elevated at 0.05/0.05/0.065. ECG no evidence of ischemia Cardiology consulted and did not think he had ACS Perhgaps troponin mildly elevated from recent URI ECHO resting here was normal -No need for further testing in patient. This is likely MSK related Given elevated troponin, could consider ischemic evaluation as an outpatient as per Cardio--> f/u with Cardio as outpt -can continue home tramadol prn and f/u with PCP and/or SPine Surgeon he is established with if pain persists (2) Elevated troponin: As above (3) Back pain: Suspect musculoskeletal back pain. Patient with longstanding history of arthritis Lidoderm patch -tramadol prn (4) HTN (hypertension), benign: BPs elevated here and was started on lisinopril 5mg daily with nice improvement -continue lisinopril and check BMP in 1 week with PCP as outpt (5) DVT prophylaxis: ambulatory Dispo-stable for dc to home Total Time Total Time Spent Total Time Spent (In Minutes): 45 min Total Time Includes: Examination of the Patient, Discharge Planning, Medication Reconciliation and Communication With Other Providers (Cardiology) Discharge Plan Discharge Items Patient Disposition: Home - Self-Care Reason For Visit: CHEST PAIN Discharge Diagnosis: Neck and arm pain Condition on Discharge: Good Activity: As commented below Lifting: Gradually increase as tolerated Bathing: No limitations Driving/Machine Use: No limitations Non-emergency contact: Primary Care Provider and Assistant Corporate Secretary Call non-emergency contact if: you have any medication questions, your symptoms worsen, your pain is not controlled, your pain is worsening, your pain is unusual for you and your pain is concerning for you Follow-up/Referrals: Loki Lim III, MD [Primary Care Provider] - 09/01/19 1:45 pm (Please, follow up with Dr. Lim on September 01 at 1:45 pm. *If you need to change this appointment, call the office at [phone].) Wu Bush MD [Physician] - (Dr. Bush's office should be contacting you to set up an outpatient stress test in the near future. ) Diet: Heart Healthy Addtl Attending Provider Instructions: Continue to take tramadol as needed for pain. If pains continue or worsen, please contact your PCP or Dr. Maldonado for an appointment. You did NOT have a heart attack. This pain is most likely coming from your neck and muscle spasm or a pinched nerve. Your blood pressure was high and uncontrolled. You were started on a low dose of a medication called lisinopril to better control this. Please take lisinopril 5mg once daily and follow up with your PCP on your blood pressure. Pending Studies at Discharge: No Stand-Alone Forms: My [facility] [employer] Medications and DC Order Prescriptions: New lisinopril [Zestril] 5 mg Tablet 5 mg PO QAM Qty: 30 RF: 0 Continued meloxicam 15 mg tablet 15 mg PO DAILY PRN (Reason: Muscle Spasm) Qty: 30 RF: 1 tramadol 50 mg tablet 50 mg PO Q6H PRN (Reason: pain) Qty: 30 RF: 0 triamcinolone acetonide 0.1 % cream 1 appln topical BID PRN (Reason: .) Qty: 1 RF: 0 desonide 0.05 % ointment 1 appln topical BID PRN (Reason: .) Qty: 1 RF: 0 pantoprazole 40 mg tablet,delayed release (DR/EC) 40 mg PO QAM RF: 0 fluticasone propionate [Flonase Allergy Relief] 50 mcg/actuation spray,suspension 2 sprays INTRANASAL DAILY PRN (Reason: ALLERGIES) RF: 0 multivitamin Tablet 1 dose PO QAM RF: 0 aspirin [Aspir-81] 81 mg Tablet,Delayed Release (Dr/Ec) 81 mg PO QAM RF: 0 Discharge Orders: Discharge Order (Routine); Ordered 08/23/19 Ordered By: Elisabet Garner Admission Data Admit Date/Time: 08/22/19 16:25 Attending Provider: Elisabet Garner Admit Provider: Mikaela Guillen Primary Care Provider: Loki Lim III Other Providers: Mikaela Guillen ; Wu Bush Other Interventions: Discharge Summary Assessment (RN) Last Done: 08/23/19 18:16 DC Date/Time DO NOT enter until pt leaves facility: 08/23/19 18:44
== END 2019-08-23 18:44 | disposition home or self-care (01) ==
LOC: ED 11:56 → INTOOBSV 16:25 → SUATTDRO 16:25 → 2N 16:25

== ENCOUNTER 2024-06-22 08:17 | Observation (INO) ==
--- NOTE | 2024-06-22 09:22 | History & Physical Bridge Note ---
Date of Service June 22, 2024 History & Physical Bridge Note I have examined the patient, reviewed the History & Physical and in the interval since the performance of the History & Physical I have noted the following changes of clinical significance: no changes noted
--- NOTE | 2024-06-22 09:23 | Pre Anesthesia Assessment ---
Date of Service June 22, 2024 Pre Sedation Assessment Vital Signs Pulse Resp Pulse Ox O2 Del Method 06/22/24 08:34 77 14 94 Room Air Cardiovascular + regular rate and + regular rhythm Respiratory + respiratory effort normal Pre-Sedation Airway Assessment Smoking Status: Former smoker Hx Sleep Apnea: No Hx Difficult Intubation: No Short, Thick Neck: No Thyromental Distance: > or= 3.5 Finger Breadths Oral Cavity: + WNL Mallampati Class: III ASA: ASA2 NPO Status Date of Last Intake of Fluids: 06/21/24 Time of Last Intake of Fluids: 23:00 Date of Last Intake of Solid Food: 06/21/24 Time of Last Intake of Solid Foods: 23:00 Procedure Planning Contraindications for Sedation: none Current Medications Reviewed: Yes Notes The planned sedation has been discussed with the patient. Informed Consent was obtained. I have identified the patient, determined the appropriateness of sedation and have assessed the patient immediately prior to the procedure. All medicine(s) and interventions are by my order.
[2024-06-22] MEDS: IODIXANOL (VISIPAQUE) 320 MG/ML 100ML IV ONE (11:11)
[2024-06-22] MEDS: NITROGLYCERIN/D5W 100MCG/ML 20ML SYR ONE (11:11)
[2024-06-22] MEDS: HEPARIN (PORCINE) 1000 UNIT/ML 10 ML (CATH LAB USE ONLY) ONE (12:27)
[2024-06-22] MEDS: MIDAZOLAM HCL 1 MG/ML 2ML VIAL ONE ×2 (12:27→12:28)
[2024-06-22] MEDS: OPTIRAY 350 ONE (12:27)
[2024-06-22] MEDS: fentaNYL citrate PF 100 MCG/2 ML VIAL ONE (12:27)
[2024-06-22] MEDS: diphenhydrAMINE 50 MG/ML VIAL ONE (12:28)
[2024-06-22] MEDS: TICAGRELOR 90 MG TAB ONE (12:28)
[2024-06-22] MEDS ORDERED: ONDANSETRON INJ 2 MG/ML 2 ML VIAL IV PRN (12:49)
[2024-06-22] MEDS ORDERED: ACETAMINOPHEN 325 MG TAB PO PRN (12:49)
[2024-06-22] MEDS ORDERED: ALUMINUM/MAGNESIUM SUSP 30 ML UDC PO PRN (12:49)
[2024-06-22] MEDS ORDERED: CYCLOBENZAPRINE HCL 10 MG TAB PO PRN (12:52)
[2024-06-22] MEDS ORDERED: traMADol HCL 50 MG TABLET PO PRN (12:52)
[2024-06-22] MEDS ORDERED: busPIRone 5 MG TAB PO PRN (12:52)
--- NOTE | 2024-06-22 14:36 | Electrocardiogram Report ---
Test Reason : Blood Pressure : */* mmHG Vent. Rate : 72 BPM Atrial Rate : 72 BPM P-R Int : 152 ms QRS Dur : 130 ms QT Int : 454 ms P-R-T Axes : 41 32 9 degrees QTcB Int : 497 ms Normal sinus rhythm Right bundle branch block Abnormal ECG When compared with ECG of 08-Jun-2023 14:38, T wave inversion now evident in Inferior leads Confirmed by Kameron Bush ([id number]) on 06/22/2024 2:35:47 PM Referred By: Kameron Bush Confirmed By: Kameron Bush
--- NOTE | 2024-06-22 15:46 | Post Anesthesia Assessment ---
Date of Service June 22, 2024 Post Sedation Assessment Vital Signs Temp Pulse Pulse Resp BP BP Pulse Ox 06/22/24 14:40 36.4 C L 68 99 H 170/83 H 99 06/22/24 13:44 36.8 C 16 99 06/22/24 13:14 36.8 C 06/22/24 13:14 93 H 122/72 97 06/22/24 12:39 37.5 C 72 16 172/88 H 99 06/22/24 08:34 77 14 94 O2 Del Method 06/22/24 14:40 Room Air 06/22/24 13:44 Room Air 06/22/24 13:14 06/22/24 13:14 Room Air 06/22/24 12:39 Room Air 06/22/24 08:34 Room Air Recovery Score Activity: Moves 4 extremities Respiration: Deep Breath/Cough Circulation: +/-20% PreAnes Value Consciousness: Fully Awake Oxygen Saturation: > 92% On Room Air Post Anesthesia Score: 10 Discharge Sedation Level of Care: Fast Track Phase II Post Sedation Plan On clinical assessment, the patient appears to have tolerated the sedation without complications. Patient is recovering as anticipated. Patient will continue to be monitored by nursing and may be discharged when sedation discharge criteria are met per below protocol. Upon Completions of procedure up to 15 minutes continue every 5 minute vital signs and the P.A.R. score; then discharge to a Phase I or Fast Track to Phase II per the following guidelines: * Discharge Patient to appropriate Phase II area if PAR is 8 or greater or return to pre- procedure baseline. The post - procedure orders will be as directed. * If PAR score is less than 8 or not return to pre-procedure baseline then patient will follow Phase I monitoring till PAR is reached for Phase II. The Phase I may be done in procedure room or may call to secure a Phase I area. * If naloxone or flumazenil are used for reversal, hold in Phase I for continued monitoring from when last reversal dose was given for a minimum of 60 minutes or longer pending the nurse and/or physician discretion of patient condition before discharge to Phase II. Please call the Sedation Physician to re-evaluate and complete post-note for discharge to Phase II area. Do NOT discharge from procedure sedation or Phase 1 until post- sedation evaluation note is complete by procedure /sedation MD Sedation Discharge Instructions to be given to the patient at discharge to home. [facility] Procedure Codes (Charges) Indication for Procedure Indication for procedure: abnormal stress test
[2024-06-22] MEDS: LIDOCAINE 1% LOCAL 20 ML VIAL ONE (16:11)
[2024-06-22] MEDS: DOCUSATE SODIUM 100 MG CAP PO PRN (16:48)
--- NOTE | 2024-06-22 16:55 | Cardiac Catheterization ---
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 Cardiac Status Clinical evaluation leading to the procedure CAD Presenation: Positive Stress Test Diagnostic Physicians Name: Kameron Bush MD Closure Device Recommendations: PCI without planned CABG Cardiac Cath Procedure Full Procedure Date June 22, 2024 Pre-Procedure Diagnosis Pre-Procedure Diagnosis: Positive Stress Test AUC Score AUC Score: 7 Post-Procedure Diagnosis Post-Procedure Diagnosis: Severe CAD Procedure(s) Performed Procedure(s) Performed: Coronary Angiography and Left Heart Cath Truck Driver'S Offsider Kameron Bush MD Unemployment Insurance Director(s) none Estimated Blood Loss Estimated Blood Loss: 5cc Medication(s) Medication(s): Fentanyl, Heparin, Lidocaine 1%, Nicardipine, Nitroglycerin and Versed Summary of Findings Procedure performed: Left heart catheterization, selective coronary angiography Staff custom feed mill operator helper: Kameron Bush MD Indication: The patient is 74-year-old gentleman without a known history of coronary disease who underwent outpatient exercise echocardiography suggesting inducible ischemia. Procedure in detail: The patient was informed of the risks benefits and alternatives to the intended procedure, he understood such and wished to proceed. He was taken to the cardiac catheterization suite in a fasting state. Conscious sedation was administered per protocol and the patient was monitored electrocardiographically throughout today's procedure. The right wrist area was prepped and draped in usual sterile fashion. This area was anesthetized using subcutaneous administration of a lidocaine solution. The right radial artery was then accessed using Seldinger technique, and a arterial sheath was placed at this site over a guidewire. The sheath was used to facilitate passage of the cardiac catheter for coronary angiography and left heart catheterization. Coronary angiogram was then obtained in multiple orthogonal views prior to removal of the catheter. At the conclusion of the procedure the sheath was removed and hemostasis was achieved at the access site using manual pressure. The patient tolerated procedure well, there were no immediate complications. Equipment used: 5 [place] 4 Findings: Coronary angiography Left Main: Left main was normal in size and caliber and bifurcated normally into the left anterior descending and left circumflex artery. There were luminal irregularities but no discrete stenoses Left anterior descending colon left anterior descending was a large transapical vessel. There were luminal irregularities in its proximal portion. Just after a large first diagonal there was a 70% stenosis. The vessel produced a second and third diagonal of medium caliber. The remainder of the vessel had luminal irregularities but no other discrete stenoses. Should be noted there was DEENA II flow on injection. Left circumflex: Left circumflex was a nondominant vessel. It produced a very large first OM system. A second OM was also of medium caliber and he had a discrete 99% stenosis at its ostium. The ongoing AV groove vessel was small without disease. Right coronary: The right coronary was a large dominant vessel. It was ectatic and tortuous in its course. There was several 20 to 30% stenosis and a maximum 50% stenosis in the mid vessel. No obstructive lesions. Impression: Right dominant coronary system Obstructive coronary disease involving the mid LAD and ostial OM2 Normal left ventricular filling pressures No evidence of aortic stenosis Recommendations Recommendations: PCI without planned CABG Specimens Specimens: None Procedural Complication(s) None Disposition PCU I attest to the content of the Intraoperative Record and any orders documented therein. Any exceptions are noted below. [facility] Card Cath Procedure Codes Cardiac Catheterization Procedure 1: Cardiovascular Cath Procedures: 50906 Coronaries and LHC (+/-LV) Moderate Sedation Procedure 1: Sedation/Anesthesia: 15989 Mod Sedation by the same physician;Init15 Min Child Age 5 & Up Procedure 2: Sedation/Anesthesia: 78570 Mod Sedation by the same physician; Ea [id number] Minutes PG Care Time/CCT Total # of Minutes Spent Total Time Spent with Patient: Total time spent is greater than 50% in coordination of care (as documented) at patient's floor/unit and/or counseling patient:
--- NOTE | 2024-06-22 17:17 | Cardiac Catheterization ---
[facility] Data: Head Of Product Cardiac Status Clinical evaluation leading to the procedure CAD Presenation: Positive Stress Test Anginal Classification: CCS III Stress Studies Past 6 Months: Yes Coronary Anatomy Dominant: Right (see diagnostic report) Diagnostic Physicians Name: Carlo Ramirez MD, PhD Closure Device Percutaneous Entry Location: Radial and femoral Closure Device: Angio-Seal and Radial Band Recommendations: Medical Therapy and/or Counseling and PCI without planned CABG PCI Indication: Stable Angina Lesion Segment Name: Proximal to mid LAD Culprit Artery: Yes Stenosis Prior to Rx (%): 70 to 80% Chronic Total Occlusion: No Pre-Procedure DEENA Flow: 2 Previously Treated Lesion: No Lesion Complexity: Non-High/Non-C Lesion Length (mm): 18 Thrombus Present: No Bifurcation Lesion: Yes Guidewire Across Lesion: Yes Cardiac Cath Procedure Full Procedure Date June 22, 2024 Pre-Procedure Diagnosis Pre-Procedure Diagnosis: Angina and Positive Stress Test AUC Score AUC Score: 07 Post-Procedure Diagnosis Post-Procedure Diagnosis: Severe CAD and Successful PCI Procedure(s) Performed Procedure(s) Performed: Drug Eluting Stent and Ultrasound Guided Vascular Access Precision Instrument Maker And Repairer Carlo Ramirez MD, PhD Estimated Blood Loss Estimated Blood Loss: 5 cc Medication(s) Medication(s): Diphenhydramine, Fentanyl, Heparin, Lidocaine 1% and Versed Summary of Findings Brief description: Patient has just completed diagnostic coronary angiography performed by Dr. Kameron Bush. See his report for diagnostic details. The patient had a 6 [place] radial artery glide sheath in place. I was asked to perform PCI of the LAD. Additional sedation was given using 50 mg of IV Benadryl, 2 mg IV Versed, and 50 mcg IV fentanyl. We attempted to advance the 6 [place] EBU 3.0 guide catheter via the radial artery approach, however, patient had severe tortuosity and we were not successful in getting the guide catheter to the coronary. Therefore, we abandon radial artery approach and proceeded with femoral artery approach. Soft tissue the right groin were anesthetized using 10 mL of 1% Xylocaine. Using the ultrasound for guidance (image saved), the right femoral artery was accessed and a 6 [place] femoral artery sheath was placed. All catheters were advanced and exchanged over a 0.035 J-tip wire. 6 [place] EBU 3.5 guide catheter was used to engage the left main coronary. Through this, BMW reversal guidewire was advanced and positioned distally in the LAD. The ACT was checked and additional heparin was provided as needed to maintain therapeutic anticoagulation. The proximal to mid LAD lesion was then predilated using a 2.5 x 12 mm sprinter balloon inflated twice to 14 vinnie. Stent implantation with a 2.75 x 26 mm [place] drug-eluting stent at 13 vinnie. Stent balloon removed. Postdilatation of the proximal portion of the stent with a 2.75 x 8 mm NC Elder balloon inflated at the proximal to mid intersection using 14 vinnie and then at the proximal edge to proximal segment at 18 vinnie. Stent balloon was removed. [place] angiography was performed. I had some concern for dissection into the diagonal branch. I attempted to pass the BMW dorsal guidewire into the diagonal which was successful. I then attempted to advance a 1.5 x 6 mm mini trek balloon but this would not cross. I then reviewed the original diagnostic coronary angiography performed by Dr. Bush and realized that the irregularity I saw on my post PCI angiography was there prior to any intervention and at this actually represented a small branch of the diagonal not of dissection. Therefore the guidewire was removed along with the balloon catheter. Final angiographic evaluation was performed. Guide catheter was removed over the J-wire. Limited right femoral artery angiography was performed to evaluate for closure. Findings were favorable, therefore, a 6 [place] femoral artery sheath was exchanged for a 6 [place] Angio-Seal closure device. This was deployed in the recommended fashion. We obtained immediate hemostasis and the patient remained hemodynamically stable. The right radial artery sheath was then removed and hemostasis was obtained using the TR band. He was returned to the recovery area in stable condition without any symptoms. This ended the case. PCI findings: 70-80% LAD stenosis is reduced to 0% stenosis post PCI No evidence of dissection or perforation post PCI DEENA-3 flow post PCI (pre-PCI DEENA flow 2) The first diagonal is jailed but has DEENA-3 flow. Summary: 1. Successful PCI of the proximal to mid LAD with an [place] drug-eluting stent. Jailed diagonal branch without hemodynamically significant stenosis. 2. Patient will be on dual antiplatelet therapy with aspirin and Brilinta for 1 to 2 years. 3. Guideline directed medical therapy for secondary prevention of coronary d isease to include aspirin, statin, beta-rush, plus or minus LEO inhibitor/ARB as tolerated. Exact regimen determined by primary tank assembler. Hemodynamics Rest Ao:: 139/80 mmHg Final Ao: 162/84 mmHg LV: Not performed Recommendations Recommendations: Medical Therapy and/or Counseling and PCI without planned CABG Radiation Exposure (mGy) 2042 mGy, fluoroscopy time 21.7 minutes Contrast (mls) 125 cc Anesthesia 2 mg Versed, 50 mcg fentanyl, 50 mg Benadryl IV. Start 1129 , end 1226 Procedural Complication(s) None Disposition Head Of Product Holding/Recovery I attest to the content of the Intraoperative Record and any orders documented therein. Any exceptions are noted below. [facility] Card Cath Procedure Codes Therapeutic Services & Ancillary Procedure 1: Cardiovascular Tx and Anc Procedures: 95904 Ultrasonic Guidance Vascular Access Moderate Sedation Procedure 1: Sedation/Anesthesia: 02693 Mod Sedation by the same physician;Init15 Min Child Age 5 & Up (Initial 15 minutes, start time 1129) Procedure 2: Sedation/Anesthesia: 91319 Mod Sedation by the same physician; Ea [id number] Minutes (Additional 42 minutes, end time 1226) Stenting Procedure 1: Cardiovascular Stent Procedures: 89296 Perc transcatheter placement of intracoronary stent(s), with ang (LAD) PG Care Time/CCT Total # of Minutes Spent Total Time Spent with Patient: Total time spent is greater than 50% in coordination of care (as documented) at patient's floor/unit and/or counseling patient:
[2024-06-22] MEDS ORDERED: SIMETHICONE 80 MG CHEW PO PRN (19:25)
[2024-06-22] MEDS: METOPROLOL TARTRATE 25 MG TAB PO SCH (20:42)
[2024-06-22] MEDS: TICAGRELOR 90 MG TAB PO SCH (20:42)
[2024-06-23 03:18] VITALS: O2SAT 94
[2024-06-23 06:29] LABS: BUN Creatinine Ratio 22.9 (10-20); Calcium 9.2 mg/dl (8.6-10.3); Creatinine Clr Calc Pharmacy 80.6 ml/min; Potassium 3.7 mmol/L (3.5-5.1)
[2024-06-23 06:34] LABS: Basophils # (auto) 0.06 K/uL (0.00-0.20); Basophils % (auto) 0.6 %; Eosinophils # (auto) 0.29 K/uL (0.00-0.50); Eosinophils % (auto) 3.1 %; Hematocrit (blood only) 36.5 % (42.0-52.0); Hemoglobin 12.8 g/dl (14.0-18.0); Immature Granulocytes # (auto) 0.06 K/uL (0.01-0.20); Immature Granulocytes % (auto) 0.6 %; Lymphocytes # (auto) 0.78 K/uL (1.20-3.40); Lymphocytes % (auto) 8.3 %; Mean Corpuscular Hemoglobin 32.2 pg (25.0-34.0); Mean Corpuscular Hgb Conc 35.1 g/dL (32.0-36.0); Mean Corpuscular Volume 91.7 fL (80.0-100.0); Monocytes # (auto) 0.93 K/uL (0.11-0.59); Monocytes % (auto) 9.9 %; Neutrophils # (auto) 7.23 K/uL (1.40-6.50); Neutrophils % (auto) 77.5 %; Platelet Count 199 K/uL (130-400); RDW Coefficient of Variation 11.4 % (11.5-14.5); RDW Standard Deviation 38.6 fL (36.4-46.3); Red Blood Count 3.98 M/uL (4.70-6.10); White Blood Count 9.35 K/ul (4.8-10.8)
[2024-06-23] MEDS: PANTOprazole 40 MG TAB PO SCH (08:01)
[2024-06-23] MEDS: amLODIPine BESYLATE 5 MG TAB PO SCH (08:02)
[2024-06-23] MEDS: ASPIRIN 81 MG ECTAB PO SCH (08:02)
[2024-06-23] MEDS: ROSUVASTATIN CALCIUM 10 MG TAB PO SCH (08:02)
[2024-06-23 08:08] VITALS: BP 126/76; PULSE 69; RESP 20; TEMP 98.2
[2024-06-23] MEDS ORDERED: ROSUVASTATIN CALCIUM 10 MG TAB PO SCH (09:00)
[2024-06-23] MEDS ORDERED: ASPIRIN 81 MG ECTAB PO SCH (09:00)
[2024-06-23] MEDS ORDERED: PANTOprazole 40 MG TAB PO SCH (09:00)
[2024-06-23] MEDS ORDERED: TICAGRELOR 90 MG HOME PACK PO ONE (11:15)
--- NOTE | 2024-06-23 11:30 | Discharge Summary ---
Date of Service June 23, 2024 Admission HPI Per Admitting Provider The patient is a 74-year-old gentleman with a history of atypical chest pain then palpitations who underwent outpatient stress testing suggestive of obstructive coronary disease. He presented for evaluation of his coronary arteries. Principal Diagnosis Abnormal stress test Discharge Exam On the day of discharge the pain was ambulatory and feeling well Clear lungs with normal respiratory effort No evidence of hematoma or access site complications at the right radial artery or right femoral artery. Discharge Data Allergies Allergy/AdvReac Type Severity Reaction Status Date / Time grass pollen-perennial rye, Allergy Mild RUNNY Verified 06/22/24 08:43 standar NOSE, CONGESTION pollen extracts Allergy Mild RUNNY Verified 06/22/24 08:43 NOSE, CONGESTION amoxicillin AdvReac Intermediate SEVERE Verified 06/22/24 08:43 DIARRHEA clavulanic acid AdvReac Intermediate SEVERE Verified 06/22/24 08:43 DIARRHEA Procedures Performed Operation Date: 06/22/24 09:30 Actual Procedures p Cineradiography w/Routine Exam - Kameron Bush MD p Cath, Left with Cors and Vent - Kameron Bush MD s Drug Eluting Stent SGl Vessel - Carlo Ramirez MD, PhD Ordered Studies 06/22/24 06:37 CL Cath Imgs for PACS use only Routine Hospital Course (1) Abnormal stress test: Plan On the day of admission the patient underwent diagnostic coronary angiography wh ich revealed obstructive coronary disease involving the mid LAD and ostial OM2. He underwent percutaneous intervention to the LAD. The remainder of his hospitalization was unremarkable. On the day of discharge was no complication at the access sites. The patient was feeling well and was discharged home with standard instructions and medical therapy including aspirin and Brilinta. Total Time Total Time Spent Total Time Spent (In Minutes): 20 Discharge Plan Discharge Items Patient Disposition: Home - Self-Care Reason For Visit: Abnormal Stress Test, Chest Pain Discharge Diagnosis: CAD Activity: Per Instructions section Activity Comment: Will no vigorous use of right wrist for 7 days Lifting: No more than 10 pounds Lifting Comment: No lifting greater than 10 pounds or straining for 7 days Bathing: No limitations Bathing Comment: No baths or soaking groin incision for 7 days Sexual Activity: When tolerated Exercise/Sports: Rest today Driving/Machine Use: No limitations Non-emergency contact: Cooler Supervisor Call non-emergency contact if: you have any medication questions and your symptoms worsen Follow-up/Referrals: Mikaela Mccoy CRNP [Primary Care Provider] - 07/01/24 10:30 am (Scheduled with Onelia Campos PA-C on July 01, 2024 at 10:30 am) Diet: Heart Healthy Addtl Attending Provider Instructions: none Pending Studies at Discharge: No Stand-Alone Forms: My [facility], Smoking Cessation Medications and DC Order Prescriptions: New ticagrelor 90 mg tablet 90 mg PO Q12H Qty: 180 3RF Continued docusate sodium [Colace] 100 mg capsule 100 mg PO DAILY PRN (Reason: constipation ) mupirocin 2 % ointment 1 applic topical BID PRN (Reason: skin irritation ) Eligard 7.5 mg (1 month) syringe 7.5 mg subcut ONCE Qty: 1 0RF Rx Instructions: C61 - Coming on 05/06/24 cyclobenzaprine 10 mg tablet 10 mg PO HS PRN (Reason: muscle spasm) Qty: 30 0RF Rx Instructions: take one tablet at bedtime as needed for muscle spasms buspirone 5 mg tablet 5 mg PO BID PRN (Reason: anxiety) Qty: 60 5RF tramadol 50 mg tablet 50 mg PO Q8H PRN (Reason: pain) Qty: 30 0RF meloxicam 7.5 mg tablet 7.5 mg PO DAILY PRN (Reason: Pain) Qty: 30 3RF amlodipine 5 mg tablet 5 mg PO QAM Qty: 90 3RF rosuvastatin 10 mg tablet 10 mg PO QAM Qty: 90 3RF multivitamin Tablet 1 tab PO QPM aspirin [Aspir-81] 81 mg tablet,delayed release (DR/EC) 81 mg PO DAILY pantoprazole [Protonix] 40 mg tablet,delayed release (DR/EC) 40 mg PO QAM No Action fluticasone propionate 50 mcg/actuation spray,suspension 1 spray intranasal DAILY PRN Rx Instructions: administer into each nostril during allergy season Discharge Orders: Discharge Order (Routine); Ordered 06/23/24 Ordered By: Kameron Dockery/Other Patient Handouts: Prediabetes Admission Data Admit Date/Time: 06/22/24 12:50 Attending Provider: Kameron Bush Admit Provider: Kameron Bush Primary Care Provider: Mikaela Mccoy Other Interventions: Discharge Summary Assessment (RN) Last Done: 06/23/24 11:53 Coding Level of Care Code 83925 IN/OBS DISCH 30 MIN/LESS Diagnoses Abnormal stress test R94.39
--- NOTE | 2024-06-24 12:18 | Electrocardiogram Report ---
Test Reason : Blood Pressure : */* mmHG Vent. Rate : 64 BPM Atrial Rate : 64 BPM P-R Int : 172 ms QRS Dur : 130 ms QT Int : 444 ms P-R-T Axes : 44 46 27 degrees QTcB Int : 458 ms Sinus rhythm Right bundle branch block Abnormal ECG Confirmed by Kameron Bush ([id number]) on 06/24/2024 12:18:42 PM Referred By: Kameron Bush Confirmed By: Kameron Bush
== END 2024-06-23 13:38 | disposition home or self-care (01) | DRG 322 ==
LOC: CC 08:17 → INTOOBSV 12:50 → 2E 12:50

== ENCOUNTER 2025-03-17 14:11 | Observation (INO) ==
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
[2025-03-17 15:13] LABS: Hematocrit (blood only) 39.1 % (42.0-52.0); Hemoglobin 13.2 g/dl (14.0-18.0); Immature Granulocytes # (auto) 0.06 K/uL (0.01-0.20); Immature Granulocytes % (auto) 0.8 %; Mean Corpuscular Hemoglobin 30.6 pg (25.0-34.0); Mean Corpuscular Volume 90.5 fL (80.0-100.0); Platelet Count 223 K/uL (130-400); RDW Standard Deviation 41.8 fL (36.4-46.3); Red Blood Count 4.32 M/uL (4.70-6.10); White Blood Count 7.37 K/ul (4.8-10.8)
[2025-03-17] MEDS: SODIUM CHLORIDE 0.9% 1,000 ML IV ONE (15:31)
[2025-03-17 15:36] LABS: Alanine Aminotransferase 21.0 U/L (7-52); Alkaline Phosphatase 48.0 U/L (34-104); Anion Gap 9.0 (3-11); Bilirubin,Total 0.6 mg/dl (0.2-1.0); Blood Urea Nitrogen 16.0 mg/dl (6-23); Calcium 9.1 mg/dl (8.6-10.3); Carbon Dioxide 23.0 mmol/L (21-32); Chloride 103.0 mmol/L (98-107); Creatinine Clr Calc Pharmacy 81.4 ml/min; Glucose 97.0 mg/dl (70-99(Fasting)); Magnesium 2.0 mg/dl (1.7-2.4); Potassium 3.9 mmol/L (3.5-5.1); Sodium 135.0 mmol/L (136-145); Total Protein 6.7 gm/dl (6.0-8.3)
[2025-03-17 15:40] LABS: INR 1.0 (0.9-1.1); Partial Thromboplastin Time 26 Seconds (21-31); Prothrombin Time 10.6 Seconds (9.0-12.0)
[2025-03-17 15:55] LABS: Appearance Urine Clear (Clear); Glucose Urine UA Negative (Negative)
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
[2025-03-17] MEDS ORDERED: MUPIROCIN 2% OINT 22 GM TUBE TOP PRN (20:14)
[2025-03-17] MEDS ORDERED: ONDANSETRON INJ 2 MG/ML 2 ML VIAL IV PRN (20:14)
[2025-03-17] MEDS ORDERED: ACETAMINOPHEN 325 MG TAB PO PRN (20:14)
[2025-03-17] MEDS ORDERED: CYCLOBENZAPRINE HCL 10 MG TAB PO PRN (20:14)
[2025-03-17 21:12] LABS: Hematocrit (blood only) 40.3 % (42.0-52.0); Hemoglobin 13.7 g/dl (14.0-18.0)
[2025-03-17] MEDS: TICAGRELOR 90 MG TAB PO SCH (22:10)
[2025-03-18 03:55] LABS: Hematocrit (blood only) 37.3 % (42.0-52.0); Hemoglobin 13.0 g/dl (14.0-18.0); Mean Corpuscular Hemoglobin 32.3 pg (25.0-34.0); Mean Corpuscular Volume 92.8 fL (80.0-100.0); Platelet Count 202 K/uL (130-400); RDW Standard Deviation 42.7 fL (36.4-46.3); Red Blood Count 4.02 M/uL (4.70-6.10); White Blood Count 7.41 K/ul (4.8-10.8)
[2025-03-18 04:11] LABS: Anion Gap 6.0 (3-11); Blood Urea Nitrogen 15.0 mg/dl (6-23); Calcium 8.7 mg/dl (8.6-10.3); Carbon Dioxide 26.0 mmol/L (21-32); Chloride 106.0 mmol/L (98-107); Creatinine Clr Calc Pharmacy 74.0 ml/min; Glucose 94.0 mg/dl (70-99(Fasting)); Potassium 3.8 mmol/L (3.5-5.1); Sodium 138.0 mmol/L (136-145)
[2025-03-18] MEDS: ASPIRIN 81 MG ECTAB PO SCH (09:09)
[2025-03-18] MEDS: ROSUVASTATIN CALCIUM 10 MG TAB PO SCH (09:10)
[2025-03-18] MEDS: MULTIVITAMIN TAB PO SCH (09:15)
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
--- NOTE | 2025-03-18 09:23 | Hospitalist Progress Note ---
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 He has had small amounts of blood in his rectum for years following radiation therapy. Has had worsening over the past few days with 3-4 episodes this morning prior to presenting to ED. Denies melanotic or black stools. Blood filled the entire toilet on each episode. BRBPR likely secondary to hemorrhoids, rule out diverticulosis, AVMs, malignancy, etc. Supportive care H&H every 6 hours Hb goal greater than 8 IV fluids Clears Discontinue home NSAID indefinitely considering bleeding risk, DAPT therapy and adverse effects with history CAD GI suspects bleeding secondary to radiation proctitis. They are planning a diagnostic sigmoidoscopy on Thursday. Therapeutic cauterization cannot be performed with increased risk of bleeding in setting of radiation proctitis. CAD status post recent stents Statin. Continue DAPT at this time benefits outweigh risks. If bleeding persists during hospitalization/worsens, hemodynamic compromise, drop in hemoglobin or other signs of regression or deterioration, then Reevaluate antiplatelets. 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 History of prostate cancer in remission Outpatient follow-up with oncology Hypertension Home medications DVT prophylaxis SCDs Full code Disposition TBD pending GI input Admission and Anticipated Discharge Date Admission Date: March 17, 2025 Subjective Doing well in good spirits no abdominal pain further signs of bleeding since admission nausea lightheadedness fevers chills or any other symptoms. In fairly good spirits. He tells me he reached out to the cardiology office and they told him to definitely continue to take dual antiplatelets unless absolutely contraindicated Review of Systems Review of Systems: Patient denies a 10 system review other than those described above in HPI. Physical Exam Physical Exam: The patient is alert and oriented. Mood and affect appeared normal. He answered all questions appropriately. HEENT: Pupils are equal and reactive to light and accommodation. Extraocular movements are intact. The sclerae are anicteric. Neuro: Cranial nerves intact Lungs: Clear to auscultation bilaterally. He has good air movement without use of accessory muscles. No rales wheezes or rhonchi. Cardiac: Heart demonstrates a regular rate and rhythm. Normal S1 and S2. No murmurs on examination. Chest: No subclavian bruits Pulses: The patient has palpable radial pulses bilaterally that are equal in intensity Extremities: There was no evidence of hypoperfusion. There is no cyanosis or clubbing. There is no edema. Skin: I did not appreciate any rashes on examination today. Results & Data Results & Data Vital Signs (Past 12 Hours) Vital Signs Temp Pulse Pulse Resp BP Pulse Ox O2 Del Method 03/18/25 08:12 37 C 78 16 144/97 H 96 Room Air 03/18/25 07:30 65 03/18/25 02:23 36.7 C 60 18 115/63 94 Room Air 03/17/25 22:31 36.4 C L 60 18 152/76 H 97 Room Air 03/17/25 22:27 60 Laboratory Results Abnormal Labs 03/17/25 03/17/25 03/17/25 14:24 17:40 20:48 RBC 4.32 L Hgb 13.2 L 13.0 L 13.7 L Hct 39.1 L 40.3 L [place] # (Auto) 0.77 H Sodium 135 L 03/18/25 03:27 RBC 4.02 L Hgb 13.0 L Hct 37.3 L [place] # (Auto) Sodium PG Care Time/CCT Total # of Minutes Spent Total Time Spent with Patient: Total time spent is greater than 50% in coordination of care (as documented) at patient's floor/unit and/or counseling patient: Coding Level of Care Code 85086 SUB INP/OBS CARE 2MIN Diagnoses Rectal bleeding K62.5 Acute hemorrhoid K64.9 Coronary artery disease involving [place] coronary artery of [place] heart without angina pectoris I25.10 Coronary Disease-Associated Artery/Lesion type: [place] artery [place] vs. transplanted heart: [place] heart Associated angina: without angina Prediabetes R73.03 Primary hypertension I10 (3) CAD (coronary artery disease) Coronary Disease-Associated Artery/Lesion type: [place] artery [place] vs. transplanted heart: [place] heart Associated angina: without angina Qualified Code(s): I25.10 - Atherosclerotic heart disease of [place] coronary artery without angina pectoris
[2025-03-18] MEDS ORDERED: TICAGRELOR 90 MG TAB PO SCH (09:45)
[2025-03-18 10:11] LABS: Hematocrit (blood only) 40.6 % (42.0-52.0); Hemoglobin 14.2 g/dl (14.0-18.0)
[2025-03-18 15:21] LABS: Hematocrit (blood only) 41.2 % (42.0-52.0); Hemoglobin 14.0 g/dl (14.0-18.0)
[2025-03-18] MEDS: FLUTICASONE PROPIONATE NA SPR 16 GM BTL PRN (17:19)
[2025-03-18 21:02] LABS: Hematocrit (blood only) 39.2 % (42.0-52.0); Hemoglobin 13.8 g/dl (14.0-18.0)
[2025-03-19 02:50] LABS: Hematocrit (blood only) 39.3 % (42.0-52.0); Hemoglobin 13.6 g/dl (14.0-18.0); Mean Corpuscular Hemoglobin 31.4 pg (25.0-34.0); Mean Corpuscular Volume 90.8 fL (80.0-100.0); Platelet Count 202 K/uL (130-400); RDW Standard Deviation 40.7 fL (36.4-46.3); Red Blood Count 4.33 M/uL (4.70-6.10); White Blood Count 8.52 K/ul (4.8-10.8)
[2025-03-19 03:06] LABS: Anion Gap 5.0 (3-11); Blood Urea Nitrogen 11.0 mg/dl (6-23); Calcium 9.1 mg/dl (8.6-10.3); Carbon Dioxide 28.0 mmol/L (21-32); Chloride 105.0 mmol/L (98-107); Creatinine Clr Calc Pharmacy 74.0 ml/min; Glucose 125.0 mg/dl (70-99(Fasting)); Potassium 3.5 mmol/L (3.5-5.1); Sodium 138.0 mmol/L (136-145)
--- NOTE | 2025-03-19 08:46 | Gastroenterology Progress Note ---
Date of Service March 19, 2025 Assessment & Plan (1) Hematochezia: Plan: Suspect radiation proctitis hemodynamically stable. Will proceed with flexible sigmoidoscopy for diagnostic evaluation. Admission and Anticipated Discharge Date Admission Date: March 17, 2025 Subjective Resting comfortably no shortness of breath no chest pain no abdominal pain no overt bleeding today Physical Exam Physical Exam: No acute distress Respiratory rate regular Cardiac rhythm regular Abdomen soft nontender Results & Data Results & Data Vital Signs (Past 12 Hours) Vital Signs Temp Pulse Pulse Resp BP Pulse Ox O2 Del Method 03/19/25 08:09 36.8 C 73 18 131/78 98 Room Air 03/19/25 07:14 59 L 03/19/25 03:26 36.7 C 58 L 16 115/63 96 Room Air 03/18/25 22:20 36.5 C 61 18 123/70 94 Room Air 03/18/25 21:46 61 Laboratory Results Laboratory Results - last 48 hr 03/17/25 03/17/25 03/17/25 14:24 17:40 20:48 WBC 7.37 RBC 4.32 L Hgb 13.2 L 13.0 L 13.7 L Hct 39.1 L 40.3 L MCV 90.5 MCH 30.6 MCHC 33.8 RDW Std Deviation 41.8 RDW Coeff of [place] 12.7 Plt Count 223 MPV 9.9 Immature Gran % (Auto) 0.8 Neut % (Auto) 67.0 Lymph % (Auto) 16.8 [place] % (Auto) 10.4 Eos % (Auto) 3.9 Baso % (Auto) 1.1 Neut # (Auto) 4.93 Lymph # (Auto) 1.24 [place] # (Auto) 0.77 H Eos # (Auto) 0.29 Baso # (Auto) 0.08 Immature Gran # (Auto) 0.06 PT 10.6 INR 1.0 APTT 26 PTT Ratio 1.0 Sodium 135 L Potassium 3.9 Chloride 103 Carbon Dioxide 23 Anion Gap 9 BUN 16 Creatinine 0.81 Est Cr Clr Drug Dosing 81.4 eGFR 91.95 BUN/Creatinine Ratio 19.8 Glucose 97 Calcium 9.1 Magnesium 2.0 Total Bilirubin 0.6 Direct Bilirubin 0.1 AST 20 ALT 21 Alkaline Phosphatase 48 Total Protein 6.7 Albumin 4.5 Urine Color Urine Appearance Urine pH Ur Specific [place] Urine Protein Urine Glucose (UA) Urine Ketones Urine Blood Urine Nitrite Urine Bilirubin Urine Urobilinogen Ur Leukocyte Esterase Urine Comment 03/17/25 03/18/25 03/18/25 Unknown 03:27 09:56 WBC 7.41 RBC 4.02 L Hgb 13.0 L 14.2 Hct 37.3 L 40.6 L MCV 92.8 MCH 32.3 MCHC 34.9 RDW Std Deviation 42.7 RDW Coeff of [place] 12.6 Plt Count 202 MPV 9.8 Immature Gran % (Auto) Neut % (Auto) Lymph % (Auto) [place] % (Auto) Eos % (Auto) Baso % (Auto) Neut # (Auto) Lymph # (Auto) [place] # (Auto) Eos # (Auto) Baso # (Auto) Immature Gran # (Auto) PT INR APTT PTT Ratio Sodium 138 Potassium 3.8 Chloride 106 Carbon Dioxide 26 Anion Gap 6 BUN 15 Creatinine 0.89 Est Cr Clr Drug Dosing 74.0 eGFR 89.37 BUN/Creatinine Ratio 16.9 Glucose 94 Calcium 8.7 Magnesium Total Bilirubin Direct Bilirubin AST ALT Alkaline Phosphatase Total Protein Albumin Urine Color Yellow Urine Appearance Clear Urine pH 6.0 Ur Specific [place] 1.006 Urine Protein Negative Urine Glucose (UA) Negative Urine Ketones Negative Urine Blood Negative Urine Nitrite Negative Urine Bilirubin Negative Urine Urobilinogen Negative Ur Leukocyte Esterase Negative Urine Comment 03/18/25 03/18/25 03/19/25 14:59 20:32 02:33 WBC 8.52 RBC 4.33 L Hgb 14.0 13.8 L 13.6 L Hct 41.2 L 39.2 L 39.3 L MCV 90.8 MCH 31.4 MCHC 34.6 RDW Std Deviation 40.7 RDW Coeff of [place] 12.4 Plt Count 202 MPV 9.3 L Immature Gran % (Auto) Neut % (Auto) Lymph % (Auto) [place] % (Auto) Eos % (Auto) Baso % (Auto) Neut # (Auto) Lymph # (Auto) [place] # (Auto) Eos # (Auto) Baso # (Auto) Immature Gran # (Auto) PT INR APTT PTT Ratio Sodium 138 Potassium 3.5 Chloride 105 Carbon Dioxide 28 Anion Gap 5 BUN 11 Creatinine 0.89 Est Cr Clr Drug Dosing 74.0 eGFR 89.37 BUN/Creatinine Ratio 12.4 Glucose 125 H Calcium 9.1 Magnesium Total Bilirubin Direct Bilirubin AST ALT Alkaline Phosphatase Total Protein Albumin Urine Color Urine Appearance Urine pH Ur Specific [place] Urine Protein Urine Glucose (UA) Urine Ketones Urine Blood Urine Nitrite Urine Bilirubin Urine Urobilinogen Ur Leukocyte Esterase Urine Comment PG Care Time/CCT Total # of Minutes Spent Total Time Spent with Patient: Total time spent is greater than 50% in coordination of care (as documented) at patient's floor/unit and/or counseling patient: Coding Level of Care Code 20181 SUB INP/OBS CARE 2/35MIN Diagnoses Hematochezia K92.1
--- NOTE | 2025-03-19 10:57 | Hospitalist Progress Note ---
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 He has had small amounts of blood in his rectum for years following radiation therapy. Has had worsening over the past few days with 3-4 episodes this morning prior to presenting to ED. Denies melanotic or black stools. Blood filled the entire toilet on each episode. BRBPR likely secondary to hemorrhoids, rule out diverticulosis, AVMs, malignancy, etc. Supportive care H&H every 6 hours Hb goal greater than 8 IV fluids Clears Discontinue home NSAID indefinitely considering bleeding risk, DAPT therapy and adverse effects with history CAD GI suspects bleeding secondary to radiation proctitis. They are planning a diagnostic sigmoidoscopy on Thursday. Therapeutic cauterization cannot be performed with increased risk of bleeding in setting of radiation proctitis. CAD status post recent stents Statin. Continue DAPT at this time benefits outweigh risks. If bleeding persists during hospitalization/worsens, hemodynamic compromise, drop in hemoglobin or other signs of regression or deterioration, then Reevaluate antiplatelets. 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 History of prostate cancer in remission Outpatient follow-up with oncology Hypertension Home medications DVT prophylaxis SCDs Full code Disposition TBD pending GI input Admission and Anticipated Discharge Date Admission Date: March 17, 2025 Subjective Unchanged no signs of bleeding no symptoms RN at bedside Review of Systems Review of Systems: Patient denies a 10 system review other than those described above in HPI. Physical Exam Physical Exam: The patient is alert and oriented. Mood and affect appeared normal. He answered all questions appropriately. HEENT: Pupils are equal and reactive to light and accommodation. Extraocular movements are intact. The sclerae are anicteric. Neuro: Cranial nerves intact Lungs: Clear to auscultation bilaterally. He has good air movement without use of accessory muscles. No rales wheezes or rhonchi. Cardiac: Heart demonstrates a regular rate and rhythm. Normal S1 and S2. No murmurs on examination. Chest: No subclavian bruits Pulses: The patient has palpable radial pulses bilaterally that are equal in intensity Extremities: There was no evidence of hypoperfusion. There is no cyanosis or clubbing. There is no edema. Skin: I did not appreciate any rashes on examination today. Results & Data Results & Data Vital Signs (Past 12 Hours) Vital Signs Temp Pulse Pulse Resp BP Pulse Ox O2 Del Method 03/19/25 08:09 36.8 C 73 18 131/78 98 Room Air 03/19/25 07:14 59 L 03/19/25 03:26 36.7 C 58 L 16 115/63 96 Room Air PG Care Time/CCT Total # of Minutes Spent Total Time Spent with Patient: Total time spent is greater than 50% in coordination of care (as documented) at patient's floor/unit and/or counseling patient: Coding Level of Care Code 12694 SUB INP/OBS CARE 2/35MIN Diagnoses Rectal bleeding K62.5 Acute hemorrhoid K64.9 Coronary artery disease involving [place] coronary artery of [place] heart without angina pectoris I25.10 Coronary Disease-Associated Artery/Lesion type: [place] artery [place] vs. transplanted heart: [place] heart Associated angina: without angina Prediabetes R73.03 Primary hypertension I10 (3) CAD (coronary artery disease) Coronary Disease-Associated Artery/Lesion type: [place] artery [place] vs. transplanted heart: [place] heart Associated angina: without angina Qualified Code(s): I25.10 - Atherosclerotic heart disease of [place] coronary artery without angina pectoris
[2025-03-20 08:05] LABS: Hematocrit (blood only) 41.2 % (42.0-52.0); Hemoglobin 14.1 g/dl (14.0-18.0); Mean Corpuscular Hemoglobin 31.6 pg (25.0-34.0); Mean Corpuscular Volume 92.4 fL (80.0-100.0); Platelet Count 229 K/uL (130-400); RDW Standard Deviation 42.5 fL (36.4-46.3); Red Blood Count 4.46 M/uL (4.70-6.10); White Blood Count 8.15 K/ul (4.8-10.8)
[2025-03-20 08:22] LABS: Anion Gap 6.0 (3-11); Blood Urea Nitrogen 9.0 mg/dl (6-23); Calcium 9.1 mg/dl (8.6-10.3); Carbon Dioxide 27.0 mmol/L (21-32); Chloride 105.0 mmol/L (98-107); Creatinine Clr Calc Pharmacy 71.2 ml/min; Glucose 103.0 mg/dl (70-99(Fasting)); Potassium 3.9 mmol/L (3.5-5.1); Sodium 138.0 mmol/L (136-145)
--- NOTE | 2025-03-20 10:08 | Gastroenterology Progress Note ---
Date of Service March 20, 2025 Assessment & Plan (1) Hematochezia: Plan: 75 year old male w/ prostate cancer s/p radiation, CAD s/p stent approximately 3 months ago on DAPT, prediabetes, hypertension, hyperlipidemia, insomnia, BRIANA, GERD admitted w/ rectal bleeding. NPO for Flex Sig for evaluation. We appreciate assistance in the management of any serological abnormality and corrections to include: hemoglobin >7, INR <2, platelets >50,000, potassium levels >3.5 but <5.3, and sodium levels within 5 points of the reference range prior to endoscopic evaluation. Admission and Anticipated Discharge Date Admission Date: March 19, 2025 Supervising Physician Co-Signing Physician Notes I saw and examined this patient with our nurse practitioner and agree with her assessment and plan. No further bleeding we will proceed with sigmoidoscopy. Subjective NPO for FlexSig. No further BMs overnight. No abd pain, nausea/vomiting. Review of Systems Review of Systems: All other findings negative except as noted in HPI. Physical Exam Constitutional: WD/WN, vitals as above Respiratory: normal respiratory effort, lungs clear to auscultation Cardiovascular: Rate/Rhythm: regular rate and regular rhythm Gastrointestinal (Abdomen): Inspection/Auscultation: normal bowel sounds Results & Data Results & Data Vital Signs (Past 12 Hours) Vital Signs Temp Pulse Pulse Resp BP BP Pulse Ox 03/20/25 08:11 98.2 F 70 18 131/80 97 03/20/25 07:33 69 03/20/25 02:38 97.7 F 63 16 126/77 98 03/19/25 22:36 97.7 F 63 18 133/76 94 O2 Del Method 03/20/25 08:11 Room Air 03/20/25 07:33 03/20/25 02:38 Room Air 03/19/25 22:36 Room Air Laboratory Results 03/20/25 Range/Units 07:42 WBC 8.15 (4.8-10.8) K/ul RBC 4.46 L (4.70-6.10) M/uL Hgb 14.1 (14.0-18.0) g/dl Hct 41.2 L (42.0-52.0) % MCV 92.4 (80.0-100.0) fL MCH 31.6 (25.0-34.0) pg MCHC 34.2 (32.0-36.0) g/dL RDW Std Deviation 42.5 (36.4-46.3) fL RDW Coeff of [place]ay[place] 12.4 (11.5-14.5) % Plt Count 229 (130-400) K/uL MPV 9.5 (9.4-12.4) fL Sodium 138 (136-145) mmol/L Potassium 3.9 (3.5-5.1) mmol/L Chloride 105 (98-107) mmol/L Carbon Dioxide 27 (21-32) mmol/L Anion Gap 6 (3-11) BUN 9 (6-23) mg/dl Creatinine 0.90 (0.6-1.4) mg/dl Est Cr Clr Drug Dosing 71.2 ml/min eGFR 89.07 BUN/Creatinine Ratio 10.0 (10-20) Glucose 103 H (70-99(Fasting)) mg/dl Calcium 9.1 (8.6-10.3) mg/dl PG Care Time/CCT Total # of Minutes Spent Total Time Spent with Patient: Total time spent is greater than 50% in coordination of care (as documented) at patient's floor/unit and/or counseling patient: Coding Level of Care Code None Diagnoses Hematochezia K92.1
--- NOTE | 2025-03-20 13:02 | Hospitalist Progress Note ---
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 He has had small amounts of blood in his rectum for years following radiation therapy. Has had worsening over the past few days with 3-4 episodes this morning prior to presenting to ED. Denies melanotic or black stools. Blood filled the entire toilet on each episode. BRBPR likely secondary to hemorrhoids, rule out diverticulosis, AVMs, malignancy, etc. Supportive care H&H every 6 hours Hb goal greater than 8 IV fluids Clears Discontinue home NSAID indefinitely considering bleeding risk, DAPT therapy and adverse effects with history CAD GI suspects bleeding secondary to radiation proctitis. They are planning a diagnostic sigmoidoscopy on Thursday. Therapeutic cauterization cannot be performed with increased risk of bleeding in setting of radiation proctitis. CAD status post recent stents Statin. Continue DAPT at this time benefits outweigh risks. If bleeding persists during hospitalization/worsens, hemodynamic compromise, drop in hemoglobin or other signs of regression or deterioration, then Reevaluate antiplatelets. 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 History of prostate cancer in remission Outpatient follow-up with oncology Hypertension Home medications DVT prophylaxis SCDs Full code Disposition TBD pending GI input Admission and Anticipated Discharge Date Admission Date: March 19, 2025 Subjective Unchanged no signs of bleeding awaiting sigmoidoscopy Review of Systems Review of Systems: Patient denies a 10 system review other than those described above in HPI. Physical Exam Physical Exam: The patient is alert and oriented. Mood and affect appeared normal. He answered all questions appropriately. HEENT: Pupils are equal and reactive to light and accommodation. Extraocular movements are intact. The sclerae are anicteric. Neuro: Cranial nerves intact Lungs: Clear to auscultation bilaterally. He has good air movement without use of accessory muscles. No rales wheezes or rhonchi. Cardiac: Heart demonstrates a regular rate and rhythm. Normal S1 and S2. No murmurs on examination. Chest: No subclavian bruits Pulses: The patient has palpable radial pulses bilaterally that are equal in intensity Extremities: There was no evidence of hypoperfusion. There is no cyanosis or clubbing. There is no edema. Skin: I did not appreciate any rashes on examination today. Results & Data Results & Data Vital Signs (Past 12 Hours) Vital Signs Temp Pulse Pulse Resp BP BP Pulse Ox 03/20/25 11:26 36.8 C 67 18 126/69 97 03/20/25 08:30 03/20/25 08:11 36.8 C 70 18 131/80 97 03/20/25 07:33 69 03/20/25 02:38 36.5 C 63 16 126/77 98 O2 Del Method 03/20/25 11:26 Room Air 03/20/25 08:30 Room Air 03/20/25 08:11 Room Air 03/20/25 07:33 03/20/25 02:38 Room Air PG Care Time/CCT Total # of Minutes Spent Total Time Spent with Patient: Total time spent is greater than 50% in coordination of care (as documented) at patient's floor/unit and/or counseling patient: Coding Level of Care Code 93046 SUB INP/OBS CARE 2/35MIN Diagnoses Rectal bleeding K62.5 Acute hemorrhoid K64.9 Coronary artery disease involving [place] coronary artery of [place] heart without angina pectoris I25.10 Coronary Disease-Associated Artery/Lesion type: [place] artery [place] vs. transplanted heart: [place] heart Associated angina: without angina Prediabetes R73.03 Primary hypertension I10 (3) CAD (coronary artery disease) Coronary Disease-Associated Artery/Lesion type: [place] artery [place] vs. transplanted heart: [place] heart Associated angina: without angina Qualified Code(s): I25.10 - Atherosclerotic heart disease of [place] coronary artery without angina pectoris
[2025-03-20 13:43] VITALS: TEMP 97.3
[2025-03-20] MEDS ORDERED: PROPOFOL IV EMULSION 10 MG/ML 20 ML VIAL IV ONE (13:43)
[2025-03-20] MEDS ORDERED: LIDOCAINE 2% 2 ML VIAL/AMP(20MG/ML) INFIL ONE (13:43)
[2025-03-20 14:19] VITALS: RESP 16; O2SAT 96
--- NOTE | 2025-03-20 14:34 | GI REPORT ---
[facility] Patient: ANAND HAMILTON : 1950 Sex at : Male Age: 75 Years Procedure: Flexible Sigmoidoscopy Date: 03/20/2025 Attending Physician: Jack Hatfield MD Referring MD: Referred Self; Vicky Upton MD Indications: - Rectal hemorrhage Medications: - None. Complications: - No immediate complications. Procedure: - The pediatric colonoscope was introduced through the anus and advanced to the sigmoid colon. - The flexible sigmoidoscopy was accomplished without difficulty. - The patient tolerated the procedure well. - The quality of the bowel preparation was adequate. Findings: - The digital rectal exam was normal. - Multiple small angioectasias without bleeding were found in the distal rectum. Impression: - Multiple non-bleeding colonic angioectasias in rectum consistent with radiation proctitis. - No specimens collected. Recommendation: - For future colonoscopy once DAPT stopped if persistent bleeding. If there are any questions, please contact the university extension specialist. Procedure Code(s): - 16192, Sigmoidoscopy, flexible; diagnostic, including collection of specimen(s) by brushing or washing, when performed (separate procedure) Diagnosis Code(s): - K62.5, Hemorrhage of anus and rectum - K55.20, Angiodysplasia of colon without hemorrhage CPT(R) - 2023 copyright [employer]. All Rights Reserved. The CPT codes, CCI edits and ICD codes generated are intended as suggestions and were generated based on input data. These codes are preliminary and upon inpatient coder review may be revised to meet current compliance and payer requirements. The provider is responsible for the final determination of appropriate codes, and modifiers. Jack Hatfield MD This document has been electronically signed. Note Initiated:03/20/2025 Note Completed:03/20/2025 2:33 PM \\[email or web address]\Data\Provation\Results\[email or web address]\[id number]
--- NOTE | 2025-03-20 15:28 | Discharge Summary ---
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 He has had small amounts of blood in his rectum for years following radiation therapy. Has had worsening over the past few days with 3-4 episodes this morning prior to presenting to ED. Denies melanotic or black stools. Blood filled the entire toilet on each episode. BRBPR likely secondary to hemorrhoids, rule out diverticulosis, AVMs, malignancy, etc. Supportive care H&H every 6 hours Hb goal greater than 8 IV fluids Clears Discontinue home NSAID indefinitely considering bleeding risk, DAPT therapy and adverse effects with history CAD GI suspects bleeding secondary to radiation proctitis. They are planning a diagnostic sigmoidoscopy on Thursday. Therapeutic cauterization cannot be performed with increased risk of bleeding in setting of radiation proctitis. Status post sigmoidoscopy 03/20 demonstrating multiple nonbleeding colonic angioectasias in rectum consistent with radiation proctitis. GI recommends in future if bleeding recurs/persists to hold DAPT for future colonoscopy. close o/p f/u with pcp and GI. CAD status post recent stents Statin. Continue DAPT at this time benefits outweigh risks. If bleeding persists during hospitalization/worsens, hemodynamic compromise, drop in hemoglobin or other signs of regression or deterioration, then Reevaluate antiplatelets. Patient's career development manager reportedly wants him to continue DAPT's. 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 He has had small amounts of blood in his rectum for years following radiation therapy. Has had worsening over the past few days with 3-4 episodes this morning prior to presenting to ED. Denies melanotic or black stools. Blood filled the entire toilet on each episode. No nausea vomiting fevers chills epigastric or other abdominal pain. Endorsed a little lightheadedness earlier however he felt this was more so due to not eating. At this time he is hungry eating a sandwich at time of evaluation. No chest pain shortness of breath. No other symptoms. Discussed with ED attending. He Does not suspect upper GI bleed Discharge Exam The patient is alert and oriented. Mood and affect appeared normal. He answered all questions appropriately. HEENT: Pupils are equal and reactive to light and accommodation. Extraocular movements are intact. The sclerae are anicteric. Neuro: Cranial nerves intact Lungs: Clear to auscultation bilaterally. He has good air movement without use of accessory muscles. No rales wheezes or rhonchi. Cardiac: Heart demonstrates a regular rate and rhythm. Normal S1 and S2. No murmurs on examination. Chest: No subclavian bruits Pulses: The patient has palpable radial pulses bilaterally that are equal in intensity Extremities: There was no evidence of hypoperfusion. There is no cyanosis or clubbing. There is no edema. Skin: I did not appreciate any rashes on examination today. Discharge Plan Discharge Items Patient Disposition: Home - Self-Care Reason For Visit: BRBPR Discharge Diagnosis: gi bleed Condition on Discharge: Fair Activity: Resume your previous activity Non-emergency contact: Primary Care Provider, Pulmonary Nurse Practitioner and Oncologist Call non-emergency contact if: you have any medication questions, your symptoms worsen and you have a fever Follow-up/Referrals: Mikaela Mccoy CRNP [Primary Care Provider] - Diet: Regular Addtl Attending Provider Instructions: Follow-up with your primary care doctor, veterinary radiologist and oncologist within 1 week Pending Studies at Discharge: No Stand-Alone Forms: My [employer], Smoking Cessation Medications and DC Order Prescriptions: Continued mupirocin 2 % ointment 1 applic topical BID PRN (Reason: skin irritation ) cyclobenzaprine 10 mg tablet 10 mg PO HS PRN (Reason: muscle spasm) Qty: 30 0RF Rx Instructions: take one tablet at bedtime as needed for muscle spasms amlodipine 5 mg tablet 5 mg PO QAM Qty: 90 3RF rosuvastatin 10 mg tablet 10 mg PO QAM Qty: 90 3RF tramadol 50 mg tablet 50 mg PO Q8H PRN (Reason: pain) Qty: 30 0RF fluticasone propionate 50 mcg/actuation spray,suspension 1 spray intranasal DAILY PRN (Reason: Congestion) Rx Instructions: administer into each nostril during allergy season multivitamin Tablet 1 tab PO QPM pantoprazole [Protonix] 40 mg tablet,delayed release (DR/EC) 40 mg PO QAM ticagrelor 90 mg tablet 90 mg PO Q12H Qty: 180 3RF aspirin 81 mg Tablet,Delayed Release (Dr/Ec) 81 mg PO DAILY cephalexin 500 mg capsule 500 mg PO QID Rx Instructions: STARTED 03/09/25 FOR 10 DAYS hydroxyzine HCl 25 mg tablet 12.5 mg PO DAILY PRN (Reason: anxiety / moods) Discontinued meloxicam 7.5 mg tablet 7.5 mg PO DAILY PRN (Reason: Pain) Qty: 30 3RF Discharge Orders: Discharge Order (Routine); Ordered 03/20/25 Ordered By: Vicky Upton Admission Data Admit Date/Time: 03/19/25 14:00 Attending Provider: Vicky Upton Admit Provider: Vicky Upton Primary Care Provider: Mikaela Mccoy Other Providers: Mauri Kevin; Jenniffer Stone; Roe Kelly; Polly Jefferson; Kathie Turcios; Alejandra Dong; Moraima Lopez; Satish Andres; Candy Jennings; Fran Loredo; Janette Boone; Christie Irene; Earlene Colon; Gabriela Chappell; Elba Calles; Guanaco Nava; Harjinder Potter; Yang Perez; Madai Perera; Vanessa Hilliard Jr; Chato Florez; Tye Palacios; Deon Huggins; Joseph Reynolds; Holly Aparicio.; Jack Hatfield I; Daksha Pack; Wilner Billy; [place]; Jamil Dang; Atul Perez Hospital Stay Data Consultations 03/17/25 16:26 ED Decision to Admit Stat 03/17/25 20:14 Consult Gastroenterology Routine Procedures Performed Operation Date: 03/20/25 16:45 Actual Procedures p Flexible Sigmoidoscopy - Jack Hatfield MD Pending Results Patient Have Any Pending Studies at Discharge: No Discharge Instructions Given to Patient (Per Discharging Provider) Follow-up with your primary care doctor, veterinary radiologist and oncologist within 1 week Total Time Total Time Spent Total Time Spent (In Minutes): 35 Coding Level of Care Code 75883 INP/OBS DISCH >30 MIN Diagnoses Rectal bleeding K62.5 Acute hemorrhoid K64.9 Coronary artery disease involving jena coronary artery of jena heart without angina pectoris I25.10 Coronary Disease-Associated Artery/Lesion type: jena artery [place] vs. transplanted heart: jena heart Associated angina: without angina Prediabetes R73.03 Primary hypertension I10
[2025-03-20 16:10] VITALS: BP 126/69; PULSE 67
--- NOTE | 2025-03-20 17:55 | Anesthesiology Progress Note ---
Date of Service March 20, 2025 Anesthesia Post Procedure Vital Signs Vital Signs: Temp Pulse Pulse Resp BP BP Pulse Ox 03/20/25 16:06 97.3 F L 67 16 126/69 142/77 H 96 03/20/25 15:59 69 03/20/25 14:18 67 16 142/77 H 96 03/20/25 13:40 97.3 F L 70 18 157/83 H 97 03/20/25 11:26 98.2 F 67 18 126/69 97 03/20/25 08:30 03/20/25 08:11 98.2 F 70 18 131/80 97 03/20/25 07:33 69 03/20/25 02:38 97.7 F 63 16 126/77 98 03/19/25 22:36 97.7 F 63 18 133/76 94 03/19/25 22:00 64 03/19/25 19:13 98.1 F 69 18 111/62 99 O2 Del Method 03/20/25 16:06 03/20/25 15:59 03/20/25 14:18 Room Air 03/20/25 13:40 Room Air 03/20/25 11:26 Room Air 03/20/25 08:30 Room Air 03/20/25 08:11 Room Air 03/20/25 07:33 03/20/25 02:38 Room Air 03/19/25 22:36 Room Air 03/19/25 22:00 03/19/25 19:13 Room Air Transfer of Care Handoff Completed per policy Notes Mental Status: alert / awake / arousable and participated in evaluation Patient Amnestic to Procedure: Yes Nausea / Vomiting: adequately controlled Pain: adequately controlled Airway Patency, RR, SpO2: stable & adequate BP & HR: stable & adequate Hydration State: stable & adequate Anesthetic Complications: no major complications apparent and Pt Satisfied with anesthetic care
--- NOTE | 2025-03-21 06:15 | Electrocardiogram Report ---
Test Reason : Blood Pressure : */* mmHG Vent. Rate : 71 BPM Atrial Rate : 71 BPM P-R Int : 170 ms QRS Dur : 126 ms QT Int : 418 ms P-R-T Axes : 30 21 13 degrees QTcB Int : 454 ms Normal sinus rhythm Right bundle branch block Abnormal ECG When compared with ECG of 18-Aug-2024 20:03, T wave inversion now evident in Inferior leads Confirmed by Kaiser Verdin ([id number]) on 03/21/2025 6:15:03 AM Referred By: REFERRED SELF Confirmed By: Kaiser Verdin
== END 2025-03-20 17:30 | disposition home or self-care (01) | DRG 395 ==
LOC: SUATTDRO → 2N 14:11 → ED 14:11 → 2N 19:53

== ENCOUNTER 2025-03-29 22:14 | Observation (INO) ==
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
[2025-03-29 23:13] LABS: Appearance Urine Clear (Clear); Glucose Urine UA Negative (Negative)
[2025-03-29 23:15] LABS: Hematocrit (blood only) 36.9 % (42.0-52.0); Hemoglobin 12.7 g/dl (14.0-18.0); Immature Granulocytes # (auto) 0.07 K/uL (0.01-0.20); Immature Granulocytes % (auto) 0.9 %; Mean Corpuscular Hemoglobin 31.4 pg (25.0-34.0); Mean Corpuscular Volume 91.3 fL (80.0-100.0); Platelet Count 237 K/uL (130-400); RDW Standard Deviation 41.7 fL (36.4-46.3); Red Blood Count 4.04 M/uL (4.70-6.10); White Blood Count 8.21 K/ul (4.8-10.8)
[2025-03-29 23:40] LABS: Alanine Aminotransferase 19.0 U/L (7-52); Albumin Globulin Ratio 1.8 (0.9-2); Alkaline Phosphatase 50.0 U/L (34-104); Anion Gap 9.0 (3-11); Bilirubin,Total 0.5 mg/dl (0.2-1.0); Blood Urea Nitrogen 20.0 mg/dl (6-23); Calcium 9.2 mg/dl (8.6-10.3); Carbon Dioxide 24.0 mmol/L (21-32); Chloride 106.0 mmol/L (98-107); Creatinine Clr Calc Pharmacy 62.6 ml/min; Globulin 2.4 gm/dl (2.5-4.0); Glucose 144.0 mg/dl (70-99(Fasting)); Lipase 27.0 U/L (11-82); Potassium 3.8 mmol/L (3.5-5.1); Sodium 139.0 mmol/L (136-145); Total Protein 6.8 gm/dl (6.0-8.3)
[2025-03-29 23:42] LABS: INR 1.0 (0.9-1.1); Partial Thromboplastin Time 26 Seconds (21-31); Prothrombin Time 10.7 Seconds (9.0-12.0)
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
--- NOTE | 2025-03-30 00:59 | XRay Report ---
Exam(s): XR CXR 1 VIEW EXAM: XR Chest, 1 View CLINICAL HISTORY: Reason for exam: GIB. TECHNIQUE: Frontal view of the chest. COMPARISON: XR Chest dated 06/08/2023 FINDINGS: Lungs: Unremarkable. No consolidation. Pleural space: Unremarkable. No pneumothorax. Heart: Unremarkable. No cardiomegaly. Mediastinum: Unremarkable. Normal mediastinal contour. Bones/joints: Unremarkable. No acute fracture. IMPRESSION: No evidence of acute cardiopulmonary disease. Electronically signed by: Tono Davis M.D. 03/30/25 00:58 AM
--- NOTE | 2025-03-30 01:10 | XRay Report ---
Exam(s): XR KUB EXAM: XR Abdomen, 1 View CLINICAL HISTORY: Reason for exam: GIB. TECHNIQUE: Frontal supine view of the abdomen/pelvis. COMPARISON: X-ray lumbar spine dated 03/16/2025 FINDINGS: Gastrointestinal tract: Unremarkable. No dilation. Bones/joints: Left hip arthroplasty. Query superior migration of the prosthesis, correlate with other priors if available. No acute fracture. IMPRESSION: No acute findings. Electronically signed by: Tono Davis M.D. 03/30/25 01:08 AM
[2025-03-30] MEDS ORDERED: ONDANSETRON INJ 2 MG/ML 2 ML VIAL IV PRN (01:47)
[2025-03-30] MEDS ORDERED: FLUTICASONE PROPIONATE NA SPR 16 GM BTL PRN (02:44)
[2025-03-30] MEDS ORDERED: CYCLOBENZAPRINE HCL 10 MG TAB PO PRN (02:44)
[2025-03-30 07:29] LABS: Hematocrit (blood only) 38.3 % (42.0-52.0); Hemoglobin 13.0 g/dl (14.0-18.0); Mean Corpuscular Hemoglobin 31.2 pg (25.0-34.0); Mean Corpuscular Volume 91.8 fL (80.0-100.0); Platelet Count 221 K/uL (130-400); RDW Standard Deviation 42.1 fL (36.4-46.3); Red Blood Count 4.17 M/uL (4.70-6.10); White Blood Count 8.44 K/ul (4.8-10.8)
[2025-03-30] MEDS: SUCRALFATE 1 GM/10 ML UDC PO SCH (08:30)
[2025-03-30] MEDS: TICAGRELOR 90 MG TAB PO SCH (08:30)
[2025-03-30] MEDS: ASPIRIN 81 MG ECTAB PO SCH (08:30)
[2025-03-30] MEDS: ROSUVASTATIN CALCIUM 10 MG TAB PO SCH (08:30)
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
--- NOTE | 2025-03-30 11:51 | Electrocardiogram Report ---
Test Reason : Blood Pressure : */* mmHG Vent. Rate : 66 BPM Atrial Rate : 66 BPM P-R Int : 176 ms QRS Dur : 124 ms QT Int : 424 ms P-R-T Axes : 50 31 24 degrees QTcB Int : 444 ms Normal sinus rhythm Right bundle branch block Abnormal ECG When compared with ECG of 17-Mar-2025 14:27, No significant change was found Confirmed by Kameron Bush ([id number]) on 03/30/2025 11:50:37 AM Referred By: Jamil Calderón Confirmed By: Kameron Bush
[2025-03-30 15:15] LABS: Hematocrit (blood only) 36.5 % (42.0-52.0); Hemoglobin 12.5 g/dl (14.0-18.0); Mean Corpuscular Hemoglobin 31.3 pg (25.0-34.0); Mean Corpuscular Volume 91.3 fL (80.0-100.0); Platelet Count 204 K/uL (130-400); RDW Standard Deviation 41.7 fL (36.4-46.3); Red Blood Count 4.00 M/uL (4.70-6.10); White Blood Count 6.90 K/ul (4.8-10.8)
[2025-03-30] MEDS: DOCUSATE SODIUM/SENNA 50/8.6MG TAB PO SCH (16:10)
[2025-03-30] MEDS: MELATONIN 3 MG TAB PO SCH (23:07)
[2025-03-30 23:41] LABS: Hematocrit (blood only) 38.1 % (42.0-52.0); Hemoglobin 13.2 g/dl (14.0-18.0); Mean Corpuscular Hemoglobin 31.4 pg (25.0-34.0); Mean Corpuscular Volume 90.7 fL (80.0-100.0); Platelet Count 217 K/uL (130-400); RDW Standard Deviation 41.0 fL (36.4-46.3); Red Blood Count 4.20 M/uL (4.70-6.10); White Blood Count 7.61 K/ul (4.8-10.8)
[2025-03-31 03:48] VITALS: TEMP 97.9
[2025-03-31 04:43] LABS: Hematocrit (blood only) 38.7 % (42.0-52.0); Hemoglobin 13.4 g/dl (14.0-18.0); Mean Corpuscular Hemoglobin 31.8 pg (25.0-34.0); Mean Corpuscular Volume 91.7 fL (80.0-100.0); Platelet Count 239 K/uL (130-400); RDW Standard Deviation 41.5 fL (36.4-46.3); Red Blood Count 4.22 M/uL (4.70-6.10); White Blood Count 8.29 K/ul (4.8-10.8)
[2025-03-31 04:56] LABS: Anion Gap 8 (3-11); Blood Urea Nitrogen 12 mg/dl (6-23); Calcium 9.0 mg/dl (8.6-10.3); Carbon Dioxide 26 mmol/L (21-32); Chloride 105 mmol/L (98-107); Creatinine Clr Calc Pharmacy 76.6 ml/min; Glucose 96 mg/dl (70-99(Fasting)); Iron 82 mcg/dl (35-175); Potassium 3.5 mmol/L (3.5-5.1); Sodium 139 mmol/L (136-145); Total Iron Binding Cap Calc 290 mcg/dl (250-450); Transferrin 207 mg/dl (200-360); Transferrin (FE) Percent Satur 28 % (20-50)
[2025-03-31 07:43] LABS: Hematocrit (blood only) 39.4 % (42.0-52.0); Hemoglobin 13.6 g/dl (14.0-18.0); Mean Corpuscular Hemoglobin 31.8 pg (25.0-34.0); Mean Corpuscular Volume 92.1 fL (80.0-100.0); Platelet Count 223 K/uL (130-400); RDW Standard Deviation 42.5 fL (36.4-46.3); Red Blood Count 4.28 M/uL (4.70-6.10); White Blood Count 8.14 K/ul (4.8-10.8)
[2025-03-31 08:07] LABS: Anion Gap 6.0 (3-11); Blood Urea Nitrogen 12.0 mg/dl (6-23); Calcium 9.0 mg/dl (8.6-10.3); Carbon Dioxide 27.0 mmol/L (21-32); Chloride 105.0 mmol/L (98-107); Creatinine Clr Calc Pharmacy 75.8 ml/min; Glucose 102.0 mg/dl (70-99(Fasting)); Potassium 3.7 mmol/L (3.5-5.1); Sodium 138.0 mmol/L (136-145)
[2025-03-31 08:12] VITALS: BP 104/64; PULSE 61; RESP 17; O2SAT 97
[2025-03-31] MEDS: ACETAMINOPHEN 325 MG TAB PO PRN (11:03)
--- NOTE | 2025-03-31 11:14 | Gastroenterology Progress Note ---
Date of Service March 31, 2025 Assessment & Plan (1) Radiation proctitis: Plan: Will plan to have him hold his Brilinta for 5 days and proceed with a colonoscopy next week. This can be done as an outpatient as his blood work is stable. The office is working to coordinate a date for the procedure. Admission and Anticipated Discharge Date Admission Date: March 30, 2025 Supervising Physician Co-Signing Physician Notes I personally saw and examined the patient. I have reviewed the chart and agree with the documentation provided by the [employer] including discussion about the assessment, treatment and plan. Briefly, Brilinta has been stopped. We will perform flex sig or colonoscopy on Thursday with APC. He is scheduled outpt. Subjective No further bleeding. He tells me he has moved his bowels and did not have blood. hgb stable at 13.6. Review of Systems Review of Systems: All systems reviewed & are unremarkable except as noted in HPI & below Physical Exam Constitutional: WD/WN, vitals as above Respiratory: normal respiratory effort, lungs clear to auscultation Cardiovascular: Rate/Rhythm: regular rate and regular rhythm Gastrointestinal (Abdomen): normal bowel sounds, soft, nontender, no hepatosplenomegaly Psychiatric: Orientation: alert and oriented x 3 Affect: euthymic affect Results & Data Results & Data Vital Signs (Past 12 Hours) Vital Signs Temp Pulse Pulse Resp BP BP Pulse Ox 03/31/25 08:11 97.9 F 61 17 104/64 97 03/31/25 06:45 60 03/31/25 03:47 97.9 F 80 16 129/77 94 03/30/25 23:38 98.1 F 59 L 20 132/75 96 O2 Del Method 03/31/25 08:11 Room Air 03/31/25 06:45 03/31/25 03:47 Room Air 03/30/25 23:38 Room Air Coding Level of Care Code 89972 SUB INP/OBS CARE 2/35MIN Diagnoses Radiation proctitis K62.7
--- NOTE | 2025-03-31 16:20 | Discharge Summary ---
Discharge Summary Date of Service March 31, 2025 Principal Dx & Hospital Course #1 = Principal Diagnosis (1) Rectal bleeding: (2) Radiation proctitis: (3) CAD (coronary artery disease): (4) Primary hypertension: (5) Hyperlipidemia: (6) Obstructive sleep apnea of adult: (7) GERD (gastroesophageal reflux disease): Plan 75yo male with history of CAD s/p TIFFANI to proximal LAD 06/22/2024 on DAPT with ASA and Brillinta for ideally 1 year, history of adenocarcinoma of the prostate s/p prostatectomy, XRT presenting with multiple episodes of bright red blood per rectum. Patient with similar presentation during last hospitalization. He had a flexible sigmoidoscopy performed on 03/20/25 which revealed radiation proctitis. Patein HD stable at present. HGB=12.7, Hct=36.9 #Hematochezia likely secondary to radiation proctitis, complicated by DAPT due to cardiac stent placement within the last year. Patient is HD stable. Hgb=12.7 -Admitted to PCU -hemoglobin was stable -Patient did not require Transfusion while here. Discussed with cardiology, Dr. Bush reported that given the risk of bleeding, patient can continue only on ASA, and can hold Brilinta. -GI consultation appreciated re: additional treatments for radiation proctitis. Assistance appreciated #CAD - s/p stent to proximal LAD on 06/22/2024. Patient was on DAPT with ASA and Brillinta -Will continue ASA only as patient completed over 6 months of DAPT -Cardiology agrees to only continue on ASA, patient agrees with above plan #Hypertension -Continue Amlodipine 5mg po daily #Hyperlipidemia -Continue Crestor 10mg po qAM #GERD -Continue Protonix 40mg po daily Admission HPI Per Admitting Provider Nelson Gomez is a 75yo male presenting with multiple episodes of rectal bleeding. Mr. Gomez has a history of CAD s/p TIFFANI to LAD on 06/22/2024 on DAPT with ASA and Brillinta, HTN, HLP, prostate cancer s/p prostatectomy, XRT and androgen deprivation therapy and recently diagnosed radiation proctitis. He was recently admitted to [facility] from 03/19 - 03/20/2025 after presenting with rectal bleeding. Patient had a sigmoidoscopy performed on 03/20/25 which revealed multiple nonbleeding colonic angioectasias in the rectum consistent with radiation proctitis. Yesterday 03/29/25 around 17:00 patient felt the urge to use the bathroom. When he got to the bathroom he noted that he had bright red blood coming from his rectum. He reports losing a significant amount of blood - he had 8-9 movements of bright red blood per rectum. Reports that some of the blood was maroon and more clotted appearing. He denies abdominal pain, nausea, vomiting, h ematemesis. NO report of fever, chills, chest pain, cough or SOB. He does report while waiting for the ambulance to come he felt a little "woozy" but does not feel that way now. In the ER patient is afebrile, HD stable, NAD Continued bleeding with one additional episode of BRBPR Discharge Exam Constitutional WD/WN, vitals as above Neck trachea midline, no thyromegaly Respiratory normal respiratory effort, lungs clear to auscultation Cardiovascular RRR, no murmur, no edema Gastrointestinal (Abdomen) normal bowel sounds, soft, nontender, no hepatosplenomegaly Discharge Plan Discharge Items Patient Disposition: Home - Self-Care Reason For Visit: RECTAL BLEEDING, RADIATION PROCTITIS Discharge Diagnosis: rectal bleeding Condition on Discharge: Good Activity: Resume your previous activity Non-emergency contact: Primary Care Provider Call non-emergency contact if: you have any medication questions Follow-up/Referrals: Mikaela Mccoy CRNP [Primary Care Provider] - Diet: Regular Addtl Attending Provider Instructions: They will call you to schedule the scope. It is ok to continue baby aspirin. Pending Studies at Discharge: No Stand-Alone Forms: [facility], Smoking Cessation Medications and DC Order Prescriptions: Continued mupirocin 2 % ointment 1 applic topical BID PRN (Reason: skin irritation ) cyclobenzaprine 10 mg tablet 10 mg PO HS PRN (Reason: muscle spasm) Qty: 30 0RF Rx Instructions: take one tablet at bedtime as needed for muscle spasms amlodipine 5 mg tablet 5 mg PO QAM Qty: 90 3RF rosuvastatin 10 mg tablet 10 mg PO QAM Qty: 90 3RF tramadol 50 mg tablet 50 mg PO Q8H PRN (Reason: pain) Qty: 30 0RF fluticasone propionate 50 mcg/actuation spray,suspension 1 spray intranasal DAILY PRN (Reason: Congestion) Rx Instructions: administer into each nostril during allergy season sucralfate 100 mg/mL suspension 20 ml WI BID Qty: 400 1RF Rx Instructions: 03/30/25 : PT REPORTS HE IS USING THIS MED RECTALLY PER PHYSICIAN ORDERS. multivitamin Tablet 1 tab PO QPM pantoprazole [Protonix] 40 mg tablet,delayed release (DR/EC) 40 mg PO QAM aspirin 81 mg Tablet,Delayed Release (Dr/Ec) 81 mg PO DAILY hydroxyzine HCl 25 mg tablet 12.5 mg PO DAILY PRN (Reason: anxiety / moods) Discontinued ticagrelor 90 mg tablet 90 mg PO Q12H Qty: 180 3RF Discharge Orders: Discharge Order (Routine); Ordered 03/31/25 Ordered By: Bobby Perry Admission Data Admit Date/Time: 03/30/25 00:28 Attending Provider: Bobby Perry Admit Provider: Mikaela Guillen Primary Care Provider: Mikaela Mccoy Other Providers: Deon Huggins; [facility] Other Interventions: Discharge Summary Assessment (RN) Last Done: 03/31/25 13:30 Hospital Stay Data Consultations 03/29/25 23:48 ED Decision to Admit Stat 03/30/25 00:28 Consult Gastroenterology Routine Pending Results Patient Have Any Pending Studies at Discharge: No Discharge Instructions Given to Patient (Per Discharging Provider) They will call you to schedule the scope. It is ok to continue baby aspirin. Total Time Total Time Spent Total Time Spent (In Minutes): 35 Coding Level of Care Code 12081 INP/OBS DISCH >30 MIN Diagnoses Rectal bleeding K62.5 Radiation proctitis K62.7 Coronary artery disease involving [place] coronary artery of [place] heart without angina pectoris I25.10 Associated angina: without angina Coronary Disease-Associated Artery/Lesion type: [place] artery [place] vs. transplanted heart: [place] heart Primary hypertension I10 Hyperlipidemia, unspecified hyperlipidemia type E78.5 Hyperlipidemia type: unspecified Obstructive sleep apnea of adult G47.33 GERD (gastroesophageal reflux disease) K21.9
== END 2025-03-31 14:44 | disposition home or self-care (01) ==
LOC: 2N 22:14 → ED 22:14 → SUATTDRO 03-30 00:28 → 2N 03-30 01:26
DX: I25.10 Atherosclerotic heart disease of native coronary artery without angina pectoris; Z79.899 Other long term (current) drug therapy; Z79.82 Long term (current) use of aspirin; Z87.891 Personal history of nicotine dependence; E78.5 Hyperlipidemia, unspecified; K62.7 Radiation proctitis; I10 Essential (primary) hypertension; K62.5 Hemorrhage of anus and rectum; G47.33 Obstructive sleep apnea (adult) (pediatric); K21.9 Gastro-esophageal reflux disease without esophagitis; Z88.1 Allergy status to other antibiotic agents

== ENCOUNTER 2025-04-24 14:53 | Observation (INO) ==
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
[2025-04-24 15:26] LABS: Hematocrit (blood only) 37.5 % (42.0-52.0); Hemoglobin 12.7 g/dl (14.0-18.0); Immature Granulocytes # (auto) 0.05 K/uL (0.01-0.20); Immature Granulocytes % (auto) 0.6 %; Mean Corpuscular Hemoglobin 31.1 pg (25.0-34.0); Mean Corpuscular Volume 91.7 fL (80.0-100.0); Platelet Count 211 K/uL (130-400); RDW Standard Deviation 41.8 fL (36.4-46.3); Red Blood Count 4.09 M/uL (4.70-6.10); White Blood Count 7.80 K/ul (4.8-10.8)
[2025-04-24] MEDS: SODIUM CHLORIDE 0.9% 1,000 ML IV SCH (15:31)
[2025-04-24 15:47] LABS: Alanine Aminotransferase 17 U/L (7-52); Albumin Globulin Ratio 1.7 (0.9-2); Alkaline Phosphatase 47 U/L (34-104); Anion Gap 7 (3-11); Bilirubin,Total 0.5 mg/dl (0.2-1.0); Blood Urea Nitrogen 21 mg/dl (6-23); Calcium 9.2 mg/dl (8.6-10.3); Carbon Dioxide 25 mmol/L (21-32); Chloride 103 mmol/L (98-107); Globulin 2.5 gm/dl (2.5-4.0); Glucose 98 mg/dl (70-99(Fasting)); Magnesium 1.7 mg/dl (1.7-2.4); Potassium 3.9 mmol/L (3.5-5.1); Sodium 135 mmol/L (136-145); Total Protein 6.7 gm/dl (6.0-8.3)
[2025-04-24 15:57] LABS: INR 1.0 (0.9-1.1); Partial Thromboplastin Time 27 Seconds (21-31); Prothrombin Time 10.7 Seconds (9.0-12.0)
[2025-04-24] MEDS: OPTIRAY 320 125ml IV ONE (16:06)
--- NOTE | 2025-04-24 16:24 | CT Scan Report ---
Head CT without contrast CT angiogram of the neck CT angiogram of the brain with contrast Provided History: Neuro deficit Comparison: None Technique: HEAD CT: Using multidetector thin collimation helical acquisition technique, axial, coronal and sagittal CT images from the skull base to the vertex were obtained without intravenous contrast. HEAD and NECK CTA: During rapid bolus intravenous injection of nonionic contrast material, axial images were obtained using thin collimation multidetector helical technique from the base of the neck through the of vertex of the head. This CT angiogram data was reconstructed at thin intervals with mild overlap. 3D reconstructions were obtained. The axial source images, multiplanar reformations, 3D reconstructions in both maximum intensity projection display and volume rendered models were reviewed. Dose reduction techniques were achieved by using automatic exposure control and/or adjustment of mA and/or kV according to patient size and/or use of iterative reconstruction technique. Findings: Head CT: There is no intracranial hemorrhage, mass effect, or midline shift. Crane/white matter differentiation in both cerebral hemispheres is preserved. Ventricles are proportionate to the cerebral sulci. Head CTA demonstrates no aneurysm or stenosis of the major intracranial arteries. Neck CTA demonstrates no stenosis of the major cervical arteries. Mild atherosclerotic disease of the carotid bulbs bilaterally without hemodynamically significant stenosis. The origins of the great vessels from the aortic arch are patent. No mass is noted within the visualized portions of the cervical soft tissues or lung apices. Impression: 1. Head CTA demonstrates no aneurysm or stenosis of the major intracranial arteries, 2. Neck CTA demonstrates no stenosis of the major cervical arteries. 3. No intracranial hemorrhage on the noncontrast head CT. Electronically signed by Kameron Falk 04-24-2025 4:23 PM
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
[2025-04-24] MEDS ORDERED: PHARMACIST DISCHARGE MED REC CONSULT PRN (18:06)
[2025-04-24] MEDS ORDERED: ACETAMINOPHEN 325 MG TAB PO PRN (18:06)
[2025-04-24] MEDS ORDERED: ONDANSETRON INJ 2 MG/ML 2 ML VIAL IV PRN (18:06)
[2025-04-24 19:34] LABS: Amphetamines+Metham, Urine Neg (Neg); MDMA (Ecstacy), Urine Neg (Neg); Marijuana, Urine Neg (Neg)
[2025-04-24] MEDS: LORazepam 0.5 MG TAB PO PRN (19:47)
[2025-04-24] MEDS: GABAPENTIN 100 MG CAP PO SCH (20:22)
[2025-04-25 06:22] LABS: Hematocrit (blood only) 38.9 % (42.0-52.0); Hemoglobin 13.4 g/dl (14.0-18.0); Immature Granulocytes # (auto) 0.03 K/uL (0.01-0.20); Immature Granulocytes % (auto) 0.5 %; Mean Corpuscular Hemoglobin 31.9 pg (25.0-34.0); Mean Corpuscular Volume 92.6 fL (80.0-100.0); Platelet Count 215 K/uL (130-400); RDW Standard Deviation 42.2 fL (36.4-46.3); Red Blood Count 4.20 M/uL (4.70-6.10); White Blood Count 6.44 K/ul (4.8-10.8)
[2025-04-25 06:45] LABS: Anion Gap 6.0 (3-11); Blood Urea Nitrogen 19.0 mg/dl (6-23); Calcium 9.3 mg/dl (8.6-10.3); Carbon Dioxide 28.0 mmol/L (21-32); Chloride 105.0 mmol/L (98-107); Cholesterol 142.0 mg/dl (0-200); Creatinine Clr Calc Pharmacy 63.8 ml/min; Glucose 108.0 mg/dl (70-99(Fasting)); HDL Cholesterol 47.0 mg/dl; Potassium 4.1 mmol/L (3.5-5.1); Sodium 139.0 mmol/L (136-145); Triglycerides 119.0 mg/dl (0-150)
[2025-04-25 07:56] LABS: Hemoglobin A1C 5.8 % (4.5-5.6)
[2025-04-25] MEDS: GADOBUTROL 10ML VIAL IV ONE (08:43)
[2025-04-25] MEDS: ASPIRIN 81 MG ECTAB PO SCH (09:18)
[2025-04-25] MEDS: ENOXAPARIN INJ 40 MG/0.4 ML SYR SQ SCH (09:18)
[2025-04-25] MEDS: ROSUVASTATIN CALCIUM 10 MG TAB PO SCH (09:18)
--- NOTE | 2025-04-25 09:21 | Magnetic Resonance Report ---
MR brain wo/w con HISTORY: 75 years-old Male [place] eval, binocular diplopia acute stroke like symptoms COMPARISON: MRV of same day, head CT 04/24/2025 TECHNIQUE: Multiplanar multisequence MRI of the brain was obtained with and without IV contrast. FINDINGS: No restricted diffusion to suggest an acute or subacute infarct. Midline structures appear unremarkab le. Study is mildly motion degraded. Degenerative changes of the imaged cervical spine. No acute intr acranial hemorrhage, midline shift, abnormal extra-axial collection, hydrocephalus or intra-axial mas s. No pathologic blooming artifact. Involutional changes of the brain parenchyma. Mild T2/FLAIR hyper intense foci suggestive of chronic microvascular ischemic disease. No abnormal enhancement. Cerebral venous sinuses and major arterial flow voids appear patent. Prior bilateral injury repair. M astoid air cells are clear. Minimal mucosal thickening of the left frontal and bilateral ethmoid sinu ses. IMPRESSION: 1. No acute intracranial abnormality. No acute or subacute infarct. 2. Involutional changes with suggestion of mild chronic microvascular ischemic disease. 3. No abnormal enhancement. ACT 112: Negative or not required by law. The above report was generated using voice recognition software. It may contain grammatical, syntax o r spelling errors. Electronically signed by: Alfredo Guzmán M.D. 04/25/2025 9:20 AM
--- NOTE | 2025-04-25 09:36 | Magnetic Resonance Report ---
MR VENOGRAM OF THE BRAIN CLINICAL HISTORY: Binocular diplopia. COMPARISON STUDY: CT angiogram of the brain dated 04/24/2025. TECHNIQUE: Sagittal MR venogram of the brain is performed. 3-D reformats are created and assessed. IV contrast was not administered for this examination. FINDINGS: The superior sagittal sinus is widely patent, as are the transverse and sigmoid sinuses. Th e proximal internal jugular veins are patent as imaged. The inferior sagittal sinus and straight sinu s are clear. IMPRESSION: Normal MR venogram of the brain. Electronically signed by: Jorje Mcelroy M.D. 04/25/2025 9:34 AM
--- NOTE | 2025-04-25 10:45 | Electrocardiogram Report ---
Test Reason : Blood Pressure : */* mmHG Vent. Rate : 66 BPM Atrial Rate : 66 BPM P-R Int : 168 ms QRS Dur : 124 ms QT Int : 420 ms P-R-T Axes : -1 -25 -12 degrees QTcB Int : 440 ms Normal sinus rhythm Right bundle branch block Possible Inferior infarct , age undetermined Abnormal ECG When compared with ECG of 29-Mar-2025 23:12, QRS axis Shifted left Confirmed by Kameron Bush ([id number]) on 04/25/2025 10:45:13 AM Referred By: REFERRED SELF Confirmed By: Kameron Bush
[2025-04-25 11:50] VITALS: PULSE 59; RESP 18; TEMP 97.9; O2SAT 96
--- NOTE | 2025-04-25 12:41 | XCELERA ---
[id number] \\[id number]
[2025-04-25 16:13] VITALS: BP 147/80
--- NOTE | 2025-04-25 17:23 | Discharge Summary ---
Discharge Summary Date of Service April 25, 2025 Principal Dx & Hospital Course #1 = Principal Diagnosis (1) Binocular vision disorder with diplopia: (2) CAD (coronary artery disease): Plan 75-year-old male brought in for completion of a stroke evaluation who presents with diplopia and ambulatory dysfunction. This did occur after arising from laying down which makes you think this could be a vertiginous episode. Initial evaluation in the ER was unremarkable. Patient however did discontinue his dual antiplatelet therapy which she was taking for coronary stenting (performed May 2024) at the end of February under cardiology recommendation due to GI bleeding. He has had no additional GI bleeding after angiodysplasias of his colon were treated with argon laser by Dr. Kelly GI medicine. #Double vision. resolved imaging mri and CT without suspect cause. This could be vertigo however will complete with MRI scan. Patient requested Ativan pretreatment for MRI. Patient will have an echocardiogram to evaluate for em bolic source there is no arrhythmia or A-fib noted on initial EKG or on monitoring. Patient continues on an Brilinta and a statin. #Coronary artery disease. As mentioned aspirin and statin are continued EKG shows sinus mechanism with right bundle branch block. Maintains himself on amlodipine check echo May 17 showed normal baseline systolic function but this was abnormal which prompted the catheterization. Patient had PCI to the mid LAD with a drug-eluting stent by Dr. Ramirez on June 22, 2024. Discussed case with Dr. Bush, Dr. Bush feels appropriate to stop the patient's aspirin and resume Brilinta on the outside chance this could be a TIA. Patient himself states he feels better on Brilinta a prescription was renewed for 90 twice daily was recommended to stop the aspirin not to promote or provoke rectal bleeding #Radiation proctitis/prostate cancer previous rectal bleeding from his radiation proctitis was treated with argon laser by Dr. Kelly for colonic angiodysplasias that had bleeding stigmata this was performed April 12, 2025 hemoglobin is stable Patient stable to transfer home with follow-up with Dr. Bush as an outpatient Notes For Next Care Provider Patient was transition from aspirin to Brilinta with hopes that we do not have any recurrence of rectal bleeding from his angiodysplasias that were treated with argon laser. We elected not to overlap dual antiplatelets because of his risk of bleeding and just to return to Brilinta therapy. Dr. Bush is aware of this transition and he will follow-up with the patient as an outpatient. Admission HPI Per Admitting Provider 75-year-old male who presents with double vision and gait disturbance. Patient brought in as a stroke workup. Patient has a history of coronary disease with a stent in May 2024. He was on dual antiplatelet therapy however he developed rectal bleeding from radiation therapy for his prostate cancer. At the end of February 2025 he is discharged with the discontinuation of Brilinta. He underwent a sigmoidoscopy with angiodysplasias of his colon which were treated with argon laser. However he did not restart his Brilinta under instructions of his manager appointment he is continued on aspirin therapy. Patient has a history that he was in his usual state of health he walked 2 miles he came home he laid down he was not feeling well he was feeling fatigued but he might get up to eat something upon trying to arise he immediately became winced unstable with his gait which then progressively worsened he had double vision associated with it and he had some other changes with regard to his vision he felt very unstable with his walking he lives along and came to the emergency department by ambulance for evaluation. Initial imaging of his brain and cerebral perfusion are negative for abnormalities. Patient did not describe vertiginous symptoms. Patient has had no other recent changes in his health or home medications. Discharge Exam The patient appeared well nourished and normally developed. He states his symptoms have resolved Vital signs as documented. Head exam is normocephalic atraumatic PERRL EOMI no nystagmus External auditory canals are clear bilaterally Neck is without JVD, thyromegaly, or carotid bruits. Lungs are clear to auscultation, no focal loss of breath sounds Cardiac exam, Rhythm is regular.. No murmurs, rubs or gallops. Abdominal exam reveals normal bowel sounds, soft non tender, no masses Extremities are nonedematous and both pedal pulses are present Neurologic exam is alert and oriented, no focal loss of strength or sensation no palmar drift no [id number] discordance Skin is without bruises or rashes Psychologically is without concerns for anxiety or depression.. Discharge Plan Discharge Items Patient Disposition: Home - Self-Care Reason For Visit: DIPLOPIA, STROKE WORKUP Discharge Diagnosis: double vision possible vertigo Condition on Discharge: Fair Activity: Resume your previous activity Non-emergency contact: Primary Care Provider and Change Analyst Call non-emergency contact if: your symptoms worsen Follow-up/Referrals: Mikaela Mccoy CRNP [Primary Care Provider] - 05/04/25 10:00 am Diet: Heart Healthy Addtl Attending Provider Instructions: you did have some double vision and walking instability, your images of your brain did not show a stroke. I spoke to Dr Bush and he says that he would endorse changing your aspirin to brillinta ( and stopping the aspirin) and following if you have any rectal bleeding but noting that he is hopeful that with only the brillinta we would protect your hearts stents and not provoke bleeding too much. The Brillinta will also provide some improved protection to your brain circulation. Pending Studies at Discharge: No Stand-Alone Forms: My [facility] [employer], Smoking Cessation Medications and DC Order Prescriptions: New ticagrelor [Brilinta] 90 mg tablet 90 mg PO BID Qty: 60 5RF Continued mupirocin 2 % ointment 0 applic topical BID PRN (Reason: skin irritation ) Patient Comments: 04/24- no fill history unable to verify amlodipine 5 mg tablet 5 mg PO QAM Qty: 90 3RF rosuvastatin 10 mg tablet 10 mg PO QAM Qty: 90 3RF tramadol 50 mg tablet 50 mg PO Q8H PRN (Reason: pain) Qty: 30 0RF Patient Comments: 04/24-last filled 09/26/24 gabapentin 100 mg capsule 100 mg PO HS Qty: 30 2RF meloxicam 7.5 mg tablet 7.5 mg PO DAILY PRN (Reason: Pain) Qty: 30 3RF fluticasone propionate 50 mcg/actuation spray,suspension 1 spray intranasal DAILY PRN (Reason: Congestion) Patient Comments: 04/24- otc unable to verify Rx Instructions: administer into each nostril during allergy season multivitamin Tablet 1 tab PO QAM Patient Comments: 04/24- otc unable to verify pantoprazole [Protonix] 40 mg tablet,delayed release (DR/EC) 40 mg PO QAM hydroxyzine HCl 25 mg tablet 12.5 mg PO DAILY PRN (Reason: anxiety / moods) cyclobenzaprine 10 mg tablet 0 mg PO HS PRN (Reason: muscle spasm) Patient Comments: 9/1- no fill history unable to verify Rx Instructions: take one tablet at bedtime as needed for muscle spasms Discontinued aspirin 81 mg Tablet,Delayed Release (Dr/Ec) 81 mg PO QAM Patient Comments: 04/24- otc unable to verify Discharge Orders: Discharge Order (Routine); Ordered 04/25/25 Ordered By: Chase Kelly Admission Data Admit Date/Time: 04/24/25 16:58 Attending Provider: Chase Kelly Admit Provider: Chase Kelly Primary Care Provider: Mikaela Mccoy Other Providers: Mauri Kevin Other Interventions: Discharge Summary Assessment (RN) Last Done: 04/25/25 16:12 Hospital Stay Data Consultations 04/24/25 16:39 ED Decision to Admit Stat Diagnostic Imagining Performed 04/24/25 15:04 CT angio head w con Stat CT angio neck with con Stat CT head/brain wo con Stat 04/25/25 16:33 MR brain wo/w con Stat MR venography head wo con Stat Pending Results Patient Have Any Pending Studies at Discharge: No Discharge Instructions Given to Patient (Per Discharging Provider) you did have some double vision and walking instability, your images of your brain did not show a stroke. I spoke to Dr Bush and he says that he would endorse changing your aspirin to brillinta ( and stopping the aspirin) and following if you have any rectal bleeding but noting that he is hopeful that with only the brillinta we would protect your hearts stents and not provoke bleeding too much. The Brillinta will also provide some improved protection to your brain circulation. Total Time Total Time Spent Total Time Spent (In Minutes): It required greater than 30 minutes to prepare this patient for discharge. Coding Level of Care Code 13432 INP/OBS DISCH >30 MIN Diagnoses Binocular vision disorder with diplopia H53.2 Coronary artery disease involving [place] coronary artery of [place] heart without angina pectoris I25.10 Coronary Disease-Associated Artery/Lesion type: [place] artery [place] vs. transplanted heart: [place] heart Associated angina: without angina
== END 2025-04-25 16:46 | disposition home or self-care (01) | DRG 123 ==
LOC: SUATTDRO → ED 14:53 → INTOOBSV 16:58 → 2S 16:58